=== PATIENT | female | born 1955 | race Caucasian/White ===

== ENCOUNTER 2019-02-12 09:23 | Emergency (ER) | payer BC ==
--- OUTSIDE RECORDS SUMMARY | 2019-02-12 09:25 | XMS REPORT ---
:1955 Author Organization [employer] Care Team Providers Name Role Phone Natalie Evi Provider Role Unavailable Allergies No Known Allergies Problems Problem Type Condition Code Onset Dates Condition Status Problem Hyperlipidemia, unspecified E78.5 Active hyperlipidemia type Problem History of kidney stones Z87.442 Active Problem Iron deficiency anemia, unspecified D50.9 Active iron deficiency anemia type Problem Encounter for removal of sutures Z48.02 Active Problem Rib pain on right side R07.81 Active Problem Vertigo R42 Active Problem Dizziness R42 Active Problem Peripheral edema R60.9 Active Problem Skin lesion L98.9 Active Problem Status post fall Z91.81 Active Problem Prediabetes R73.03 Active Problem Vitamin D deficiency E55.9 Active Problem Depression with anxiety F41.8 Active Problem Insomnia, unspecified type G47.00 Active Problem Hypothyroidism, unspecified type E03.9 Active Medications No Known Medications Results No Known Results Summary Purpose elastic[employer]ioinicalPadinmotion Submission
--- OUTSIDE RECORDS SUMMARY | 2019-02-12 09:25 | XMS REPORT ---
:1955 [facility] Address [address] [place] [address] Dr. Lowery [address] [place] [id number] Care Team Providers Name Role Phone Unavailable Unavailable Unavailable Problems This patient has no known problems. Allergies, Adverse Reactions, Alerts This patient has no known allergies or adverse reactions. Medications This patient has no known medications.
[2019-02-12 09:55] LABS: Absolute Lymphocytes (CBC) 2.1 K/uL (0.7-4.9); Basophils % 0.9 % (0-1.3); Lymphocytes % 24.9 % (15.3-44.8); MPV 8.1 fL (7.6-11.3); RBC Red Blood Cell Count 4.76 M/uL (3.86-4.86)
--- NOTE | 2019-02-12 10:20 | RAD REPORT ---
EXAM DESCRIPTION: USExtremity Venous Uni Ltd02/12/2019 10:09 am CLINICAL HISTORY: left leg pain and swelling. COMPARISON: None. FINDINGS: Left common femoral, superficial femoral, popliteal and posterior tibial veins are compre ssible and demonstrate augmentation. Doppler demonstrates good flow. IMPRESSION: No evidence of deep venous thrombosis involving the left lower extremity.
--- NOTE | 2019-02-12 10:21 | RAD REPORT ---
EXAM DESCRIPTION: Santiago Single View02/12/2019 10:14 am CLINICAL HISTORY: sob COMPARISON: none FINDINGS: The lungs appear clear of acute infiltrate. The heart is normal size IMPRESSION: No acute abnormalities displayed
--- NOTE | 2019-02-12 10:22 | RAD REPORT ---
EXAM DESCRIPTION: CT - CTHCSPWOC - 02/12/2019 9:53 am CLINICAL HISTORY: Bilateral arm weakness COMPARISON: None. TECHNIQUE: Axial 5 mm thick images of the head were obtained. Axial 2 mm thick images of the cervic al spine were obtained with sagittal and coronal reconstruction images generated and reviewed. All CT scans are performed using dose optimization technique as appropriate and may include automated exposure control or mA/KV adjustment according to patient size. FINDINGS: No intracranial hemorrhage, mass, edema or acute intracranial finding. No suspicion for acute infarct ion. No extra-axial fluid collections. Mastoid air cells and paranasal sinuses are clear. No globe or orbit abnormality seen. Cervical bodies are normal in height. No subluxation abnormalities. No fracture or acute cervical mike tebral body finding. C4-5, C5-6 and C6-7 disc space narrowing present with mild C7-T1 disc space narr owing. Anterior and posterior endplate spurs are present. There is very prominent thickening and calc ification of the posterior longitudinal ligament spanning C3-C5. Severe left facet degenerative santiago e at C3-4 with bony foraminal encroachment. Calcified posterior ligament changes cause central spinal stenosis to 9 mm. Posterior calcifications at C4-5 extend into each exit foramen where there is very substantial bony foraminal encroachment and central spinal stenosis to 6.5 mm. Uncovertebral hypertr ophy causes significant right foraminal stenosis at C5-6. Posterior ligamentous thickening changes ca use central spinal stenosis to 7 mm. No paraspinal mass or hematoma. Central canal detail is inherently limited. IMPRESSION: Negative CT head examination for acute or significant finding. No fracture or acute cervical spine finding. Cervical spine degenerative changes are present as detailed above. The very significant posterior liborio gitudinal ligament thickening and calcification causes substantial spinal stenosis at C3-4, C4-5 and C5-6. Cord flattening is certainly occurring. Cord detail is limited on CT imaging. Multilevel bony foraminal encroachment as detailed.
--- NOTE | 2019-02-12 10:37 | EKG ---
Test Date: 2019-02-12 Test Time: 09:48:43 [employer] Director: FAINA MEASUREMENT RESULTS: Intervals: Rate: 80 MA: 154 QRSD: 90 QT: 402 QTc: 463 Felt: P: 20 MA: 154 QRS: -20 T: 10 INTERPRETIVE STATEMENTS: Normal sinus rhythm Minimal voltage criteria for LVH, may be normal variant Cannot rule out Anterior infarct, age undetermined Abnormal ECG Compared to ECG 05/03/2016 08:45:38 Left ventricular hypertrophy now present Myocardial infarct finding now present Electronically Signed On 02-12-19 10:36:27 CDT by Dario Casas
[2019-02-12] MEDS ORDERED: dexAMETHasone 10 MG/ML VIAL ONE (10:44)
[2019-02-12 10:45] LABS: Blood Morphology Comment NOT SEEN (NOT SEEN); Platelet Estimate ADEQ
[2019-02-12 11:50] LABS: BUN Blood Urea Nitrogen 12 mg/dL (7-18); Bicarbonate 29 mmol/L (21-32); Glucose Level 104 mg/dL (74-106); NT PRO-BNP 25 pg/mL (<125); Potassium 3.4 mmol/L (3.5-5.1); Sodium Level 139 mmol/L (136-145); Thyroid Stimulating Hormone 0.842 uIU/mL (0.360-3.740); Troponin (Emerg Dept Use Only) < 0.02 ng/mL (0.0-0.045)
[2019-02-12] MEDS ORDERED: DIAZEPAM 5 MG TABLET ONE (13:40)
--- NOTE | 2019-02-12 14:37 | RAD REPORT ---
EXAM DESCRIPTION: MRI - C Spine W/Wo Cont - 02/12/2019 2:21 pm CLINICAL HISTORY: Extremity numbness, abnormal CT imaging with significant spinal stenosis COMPARISON: CT cervical spine February 12 TECHNIQUE: Sagittal T1-weighted, T2-weighted and T2-FLAIR sequences as well as axial T2 medic sequen ce obtained. Sagittal and axial post contrast T1-weighted images were obtained following 18 ml of Gd contrast material. FINDINGS: Cervical bodies are normal in height. No subluxation abnormality. No marrow edema or marro w replacing process. Postcontrast imaging shows no abnormal enhancement of or vertebral body. Cerebellar tonsils and mid-line skull base show no suspicious finding. No significant finding at the C1 and C2 levels. C2-3 level: No significant findings. C3-4 level: Midline disc bulge changes are present. There is calcification along the posterior longit udinal ligament. Posterior ligamentous thickening changes are present. Anterior and posterior subarac hnoid spaces are attenuated. Central spinal stenosis present to 8 mm. Significant left facet joint de generative change with left foraminal stenosis. Cord contour is flattened. C4-5 level: Disc is thinned and desiccated. There is protruding disc material with overlying thickene d and calcified posterior longitudinal ligament. Cord is significantly flattened. Spinal stenosis is present to 6-7 mm. Calcifications extend out into each exit foramen where there is significant forami nal stenosis. No significant facet degenerative change. C5-6 level: Midline and left-sided spurring and disc bulge changes are present. There is flattening i n the midline and left anterior contour the cord. Posterior ligamentous thickening changes are presen t. Canal is stenotic to 7.5 mm. Right bony foraminal encroachment changes are present. C6-7 level: Disc bulge and endplate spurring changes partially attenuate the anterior subarachnoid sp rosa. No contact of the cord. Canal diameter is 8.5 mm. Left foraminal encroachment changes are presen t from uncovertebral joint hypertrophy. C7-T1 level: No significant findings. Significant cord flattening present at C4-5 with significant but less pronounced cord flattening at C 3-4 and C5-6. No cord signal abnormality seen. Post-contrast view show no abnormal enhancement of the vertebral body or disc spaces. No cord or cent ral canal enhancement seen. IMPRESSION: Multilevel significant central spinal stenosis and significant cord flattening most pron ounced at C4-5 with significant changes present at C3-4 and C5-6. Findings are primarily due to protruding disc material and thickened, calcified posterior longitudina l ligament. Canal stenosis, cord flattening and foraminal stenosis findings are detailed at each level in the bod y of the report. Currently there is no cord signal abnormality identifiable. No enhancement on postcontrast imaging.
--- NOTE | 2019-02-12 15:06 | ER ---
Nurse's Notes [facility] Name: Garima Engel Age: 63 yrs Sex: Female : 1955 Arrival Date: 02/12/2019 Time: 09:24 Bed 4 Private MD: Evi Estrada Diagnosis: Spinal stenosis, cervical region;Spinal cord flattening;Dyspnea, unspecified;Weakness;Paresthesia of skin Presentation: 02/12 09:25 Presenting complaint: Patient states: "I've been short of breath and both of my arms aa5 feel weak but he left weaker than the right". Pt also reports monty leg swelling and left leg pain with walking. 09:25 Transition of care: patient was not received from another setting of care. Onset of aa5 symptoms was February 12, 2019. Risk Assessment: Do you want to hurt yourself or someone else? Patient reports no desire to harm self or others. Initial Sepsis Screen: Does the patient meet any 2 criteria? HR > 90 bpm. Does the patient have a suspected source of infection? No. Patient's initial sepsis screen is negative. Care prior to arrival: None. 09:25 Acuity: SHADI 3 aa5 09:25 Method Of Arrival: Ambulatory aa5 Historical: - Allergies: 09:28 Codeine; aa5 09:28 PENICILLINS; aa5 09:42 nitrofurantoin (Anaphylaxis); aa5 - PMHx: 09:28 Thyroid problem; aa5 - PSHx: 09:28 rotator cuff; skin cancer removed; Knee surgery; aa5 - Immunization history:: Adult Immunizations up to date. - Social history:: Smoking status: Patient/guardian denies using tobacco. - Family history:: not pertinent. - Ebola Screening: : No symptoms or risks identified at this time. - Hospitalizations: : No recent hospitalization is reported. Screenin:50 Abuse screen: Denies threats or abuse. Nutritional screening: No deficits noted. aa5 Tuberculosis screening: No symptoms or risk factors identified. Fall Risk None identified. Assessment: 09:30 General: Appears comfortable, Behavior is calm, cooperative. Pain: Complains of pain in aa5 left leg when walking Pain does not radiate. Pain currently is 0 out of 10 on a pain scale. Quality of pain is described as aching, dull, Pain began 2 weeks ago Is intermittent. Neuro: Level of Consciousness is awake, alert, obeys commands, Oriented to person, place, time, situation, Edge Drummer are equal bilaterally Moves all extremities. Gait is steady, Speech is normal, Facial symmetry appears normal, Pupils are PERRLA, Reports monty arm weakness, pt states "I feel like I drop things and my left arm feels weaker than the right at times" . Cardiovascular: Heart tones S1 S2 present Edema is 1+ to bilateral lower extremities Rhythm is regular. Respiratory: Reports shortness of breath at rest on exertion Airway is patent Respiratory effort is even, unlabored, Respiratory pattern is regular, symmetrical, Breath sounds are clear bilaterally. Denies cough. GI: Abdomen is round non-distended, Patient currently denies abdominal pain, diarrhea, nausea, vomiting. : No signs and/or symptoms were reported regarding the genitourinary system. EENT: No signs and/or symptoms were reported regarding the EENT system. Derm: Skin is pink, warm \\T\\ dry. Musculoskeletal: Range of motion: intact in all extremities. 11:12 Reassessment: Dr. Ordaz notified of several IV unsuccessful attempts. . aa5 12:33 Reassessment: Patient is alert, oriented x 3, equal unlabored respirations, skin aa5 warm/dry/pink. Awaiting MRI, pt notified of wait time . 13:45 Reassessment: Patient is alert, oriented x 3, equal unlabored respirations, skin aa5 warm/dry/pink. Pt to MRI via wheelchair. . 15:00 Reassessment: Patient is alert, oriented x 3, equal unlabored respirations, skin aa5 warm/dry/pink. Pt back from MRI. 16:20 Reassessment: Patient is alert, oriented x 3, equal unlabored respirations, skin aa5 warm/dry/pink. Awaiting transfer approval from [facility], pt notified of wait time. Pt given a sandwich to eat, crackers, and soda per Dr. Ordaz. . 17:00 Reassessment: Report given to Taye Mtz (at [facility]). Awaiting EMS for transfer, aa5 pt and pt's notified of wait time.. Vital Signs: 09:30 BP 124 / 96; Pulse 92; Resp 16 S; Temp 98.1(O); Pulse Ox 99% on R/A; Weight 81.65 kg aa5 (R); Height 5 ft. 2 in. (157.48 cm) (R); Pain 0/10; 10:40 BP 122 / 73; Pulse 80; Resp 16 S; Pulse Ox 98% on R/A; Pain 0/10; aa5 11:25 BP 119 / 68; Pulse 73; Resp 16 S; Pulse Ox 97% on R/A; aa5 12:30 BP 118 / 64; Pulse 70; Resp 16 S; Pulse Ox 100% on R/A; aa5 13:30 BP 128 / 85; Pulse 84; Resp 18 S; Pulse Ox 98% on R/A; aa5 15:19 BP 120 / 78; Pulse 83; Resp 16; Pulse Ox 100% on R/A; aa5 17:00 BP 109 / 70; Pulse 98; Resp 16 S; Temp 98.0(TE); Pulse Ox 97% on R/A; Pain 0/10; aa5 09:30 Body Mass Index 32.92 (81.65 kg, 157.48 cm) aa5 ED Course: 09:24 Patient arrived in ED. rg4 09:25 Evi Estrada MD is Private Physician. rg4 09:25 Arm band placed on Patient placed in an exam room, on a stretcher. aa5 09:25 Patient has correct armband on for positive identification. Placed in gown. Bed in low aa5 position. Call light in reach. Side rails up X2. case monitor on. Pulse ox on. NIBP on. 09:29 Titus Ordaz MD is Attending Physician. rn 09:43 Rebecca Garcia RN is Primary Nurse. aa5 09:46 Triage completed. aa5 09:52 EKG done, by information technology administrator. reviewed by Titus Ordaz MD. at1 09:52 Missed attempt(s): 22 gauge in right forearm. Missed attempt by planning technicianEvelia hernandez. Bleeding controlled, band aid applied, catheter tip intact. 09:55 CT Head C Spine In Process Unspecified. EDMS 10:11 Extremity Venous Uni Ltd US In Process Unspecified. EDMS 10:16 XRAY Chest (1 view) In Process Unspecified. EDMS 10:55 Missed attempt(s): 22 gauge in left forearm. Bleeding controlled, band aid applied, aa5 catheter tip intact. 11:00 Missed attempt(s): 24 gauge in left hand. Bleeding controlled, band aid applied, aa5 catheter tip intact. 11:05 Missed attempt(s): 24 gauge in left forearm. Bleeding controlled, band aid applied, aa5 catheter tip intact. 11:10 Missed attempt(s): 24 gauge in right antecubital area. Missed attempt by Alona (from aa5 MRI department) . Bleeding controlled, band aid applied, catheter tip intact. 11:40 Inserted saline lock: 20 gauge in right antecubital area, using aseptic technique. aa5 ,using aseptic technique. US guided IV by Dr. Ordaz. 13:56 Patient moved to [facility] via wheelchair. lc 14:22 Patient moved back from [facility]. 15:03 attempted transfer to [facility]. bd 17:20 No provider procedures requiring assistance completed. Patient transferred, IV remains aa5 in place. Administered Medications: 11:45 Drug: Decadron - Dexamethasone 10 mg Route: IVP; Site: right antecubital; aa5 11:55 Follow up: Response: No adverse reaction aa5 13:40 Drug: Valium 5 mg Route: PO; aa5 15:00 Follow up: Response: No adverse reaction aa5 Outcome: 15:05 ER care complete, transfer ordered by . rn 17:20 Transferred by ground EMS to [facility], Transfer form completed. aa5 X-rays sent w/ patient. Note: Report given to [facility] 17:20 Condition: stable 17:20 Instructed on the need for transfer, Demonstrated understanding of instructions. 17:25 Patient left the ED. aa5 Signatures: Dispatcher [employer] EDMS Hue Fuentes Lorena lc Nieto, Roman, MD MD rn Calderon, Audri RN RN aa5 Alannah Long, reinstatement clerk EKG Tat1 Soledad [place] rg4 Corrections: (The following items were deleted from the chart) 09:45 09:24 Arm band placed on Patient placed in an exam room, on a stretcher, aa5 aa5 09:48 09:25 Initial Sepsis Screen: Does the patient meet any 2 criteria? No. Patient's aa5 initial sepsis screen is negative. Does the patient have a suspected source of infection? No. Patient's initial sepsis screen is negative. aa5 11:15 09:52 Missed attempt(s): 22 gauge in right forearm. Bleeding controlled, band aid aa5 applied, catheter tip intact. aa5 18:21 18:20 Patient left the ED. aa5 aa5
--- NOTE | 2019-02-12 15:06 | EDPHYS ---
Physician Documentation [facility] Name: Garima Engel Age: 63 yrs Sex: Female : 1955 Arrival Date: 02/12/2019 Time: 09:24 Bed 4 Private MD: Evi Estrada ED Physician Titus Ordaz HPI: 02/12 09:42 This 63 yrs old Female presents to ER via Unassigned with complaints of rn Shortness Of Breath, Arm Weakness, Leg Swelling. 09:42 The patient has shortness of breath with light activity. Onset: The symptoms/episode rn began/occurred 2 week(s) ago. Duration: The symptoms are intermittent. The patient's shortness of breath is aggravated by exertion, light activity. Severity of symptoms: At their worst the symptoms were mild in the emergency department the symptoms are unchanged. The patient has not experienced similar symptoms in the past. Reports 2 weeks of intermittent weakness of both arms, and dyspnea. NO fever/cough/chest pain. Reports feels arms are weak when performing tasks, one side is not worse than other. No leg weakness. No paresthesias. No recent surgery o hx of dvt/pe.. Historical: - Allergies: 09:28 Codeine; aa5 09:28 PENICILLINS; aa5 09:42 nitrofurantoin (Anaphylaxis); aa5 - PMHx: 09:28 Thyroid problem; aa5 - PSHx: 09:28 rotator cuff; skin cancer removed; Knee surgery; aa5 - Immunization history:: Adult Immunizations up to date. - Social history:: Smoking status: Patient/guardian denies using tobacco. - Family history:: not pertinent. - Ebola Screening: : No symptoms or risks identified at this time. - Hospitalizations: : No recent hospitalization is reported. ROS: 09:42 Constitutional: Negative for fever, chills, and weight loss, Eyes: Negative for injury, rn pain, redness, and discharge, Neck: Negative for injury, pain, and swelling, Cardiovascular: Negative for chest pain, palpitations, + edema of both legs, L>R Respiratory: Negative for cough, wheezing, and pleuritic chest pain, Abdomen/GI: Negative for abdominal pain, nausea, vomiting, diarrhea, and constipation, MS/Extremity: Negative for injury and deformity, Skin: Negative for injury, rash, and discoloration, Neuro: Negative for headache, numbness, tingling, and seizure. Exam: 09:42 Constitutional: This is a well developed, well nourished patient who is awake, alert, rn and in no acute distress. Head/Face: Normocephalic, atraumatic. Eyes: Pupils equal round and reactive to light, extra-ocular motions intact. Lids and lashes normal. Conjunctiva and sclera are non-icteric and not injected. Cornea within normal limits. Periorbital areas with no swelling, redness, or edema. ENT: MMM, no stridor Neck: Trachea midline, no thyromegaly or masses palpated, and no cervical lymphadenopathy. Supple, full range of motion without nuchal rigidity, or vertebral point tenderness. No Meningismus. Cardiovascular: Regular rate and rhythm. No pulse deficits. Respiratory: Faint crackles at bases, no tachypnea, no retraction, speaking full sentences Abdomen/GI: soft, non-tender MS/ Extremity: Pulses equal, no cyanosis. Neurovascular intact. Full, normal range of motion. LLE 0.5 cm greater circumference compared to RLE. Non-pitting edema. Non-tender. No erythema Neuro: Awake and alert, GCS 15, oriented to person, place, time, and situation. Cranial nerves II-XII grossly intact. Motor strength 5/5 in all extremities. Sensory grossly intact. Cerebellar exam normal. Normal gait. Vital Signs: 09:30 BP 124 / 96; Pulse 92; Resp 16 S; Temp 98.1(O); Pulse Ox 99% on R/A; Weight 81.65 kg aa5 (R); Height 5 ft. 2 in. (157.48 cm) (R); Pain 0/10; 10:40 BP 122 / 73; Pulse 80; Resp 16 S; Pulse Ox 98% on R/A; Pain 0/10; aa5 11:25 BP 119 / 68; Pulse 73; Resp 16 S; Pulse Ox 97% on R/A; aa5 12:30 BP 118 / 64; Pulse 70; Resp 16 S; Pulse Ox 100% on R/A; aa5 13:30 BP 128 / 85; Pulse 84; Resp 18 S; Pulse Ox 98% on R/A; aa5 15:19 BP 120 / 78; Pulse 83; Resp 16; Pulse Ox 100% on R/A; aa5 17:00 BP 109 / 70; Pulse 98; Resp 16 S; Temp 98.0(TE); Pulse Ox 97% on R/A; Pain 0/10; aa5 09:30 Body Mass Index 32.92 (81.65 kg, 157.48 cm) aa5 Procedures: 11:29 Peripheral line: by aseptic technique a peripheral line was placed in the right rn antecubital vein, 20g peripheral IV placed using Ultrasound guidance. Single stick, Good blood flow and easy flush. . MDM: 09:29 Patient medically screened. 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 15:01 Differential diagnosis: cervical stenosis, spinal cord compression. Data reviewed: rn vital signs, nurses notes, lab test result(s), EKG, radiologic studies, CT scan, MRI, and as a result, I will admit patient. Counseling: I had a detailed discussion with the patient and/or guardian regarding: the historical points, exam findings, and any diagnostic results supporting the discharge/admit diagnosis, lab results, radiology results, the need to transfer to another facility, for higher level of care, [facility] does not immediately have the required specialist. ED course: Pt with spinal cord flattening and significant cervical canal stenosis, arranging transfer to [facility] for NSG consult and evaluation.. 02/12 09:41 Order name: CBC with Diff; Complete Time: 11:50 rn 02/12 09:41 Order name: Basic Metabolic Panel; Complete Time: 11:50 rn 02/12 09:41 Order name: N-Terminal Pro-brain Natriuretic Peptide; Complete Time: 11:50 rn 02/12 09:41 Order name: Troponin (emerg Dept Use Only); Complete Time: 11:50 rn 02/12 09:41 Order name: TSH; Complete Time: 11:50 rn 02/12 09:41 Order name: T4 Free; Complete Time: 11:50 rn 02/12 09:41 Order name: XRAY Chest (1 view); Complete Time: 10:27 rn 02/12 09:41 Order name: CT Head C Spine; Complete Time: 10:27 rn 02/12 09:41 Order name: Extremity Venous Uni Ltd US; Complete Time: 10:27 rn 02/12 10:46 Order name: Manual Differential; Complete Time: 11:50 EDAK 02/12 15:03 Order name: C Spine W/Wo Cont EDAK 02/12 09:41 Order name: IV Start; Complete Time: 12:28 rn 02/12 09:41 Order name: EKG; Complete Time: 09:42 rn 02/12 09:41 Order name: EKG - Nurse/Tech; Complete Time: 09:51 rn 02/12 16:22 Order name: Diet Heart Healthy; Complete Time: 16:22 bd Administered Medications: 11:45 Drug: Decadron - Dexamethasone 10 mg Route: IVP; Site: right antecubital; aa5 11:55 Follow up: Response: No adverse reaction aa5 13:40 Drug: Valium 5 mg Route: PO; aa5 15:00 Follow up: Response: No adverse reaction aa5 Disposition: 02/12/19 15:05 Transfer ordered to [facility]. Diagnosis are Spinal stenosis, cervical region, Spinal cord flattening, Dyspnea, unspecified, Weakness, Paresthesia of skin. - Reason for transfer: Higher level of care. - Accepting physician is Dr.. - Condition is Stable. - Problem is an ongoing problem. - Symptoms are unchanged. Signatures: Dispatcher [employer] [facility] Titus Ordaz MD MD rn Calderon, Audri, RN RN aa5 Corrections: (The following items were deleted from the chart) 14:59 10:43 C Spine W Cont ordered. [facility] EDAK 18:20 15:05 02/12/2019 15:05 Transfer ordered to [facility]. Diagnosis is aa5 Spinal stenosis, cervical region; Spinal cord flattening; Dyspnea, unspecified; Weakness; Paresthesia of skin. Reason for transfer: Higher level of care. Accepting physician is Dr.. Condition is Stable. Problem is an ongoing problem. Symptoms are unchanged. rn
[2019-02-12 19:14] VITALS: BP 109/70; TEMP 98; O2SAT 97
== END 2019-02-12 18:20 | disposition short-term general hospital (02) ==
LOC: ER 09:23
PROC: 05HD33Z Insertion of Infusion Device into Right Cephalic Vein, Percutaneous Approach (ICD-10-PCS; principal; 2019-02-12)
DX: M48.02 Spinal stenosis, cervical region (principal); G95.20 Unspecified cord compression; R53.1 Weakness; R20.2 Paresthesia of skin; Z85.828 Personal history of other malignant neoplasm of skin; Z88.0 Allergy status to penicillin; Z88.5 Allergy status to narcotic agent; Z88.8 Allergy status to other drugs, medicaments and biological substances
CPT/HCPCS: 93005; 85025; 80048; 36415; 84443; 84484; 84439; 83880; 70450; 72125; 71045; 93971; 72156; 36569; A9577; J1100; 96374; 99285

== ENCOUNTER 2022-02-28 16:05 | Observation (INO) | payer OTHER ==
--- OUTSIDE RECORDS SUMMARY | 2022-02-28 16:12 | XMS REPORT | Continuity of Care Document ---
:1955 Author Organization [facility] t Address [address] [place] [address] Care Team Providers Name Role Phone No, Pcp [facility] Primary Care Physician Unavailable Bianca Garcia Attending Clinician Unavailable Evi Estrada Attending Clinician Unavailable Yehuda Portillo MD Attending Clinician VI ANGEL Attending Clinician Unavailable Dung Mejia MD Attending Clinician VI ANGEL Admitting Clinician Unavailable Payers Payer Name Policy Type Policy Number Effective Date Expiration Date S benoit MEDICARE A B [id number] 2019 00:00:00 BCBS OS [id number] 2014 POS/PPO/EPO 00:00:00 GENERIC MEDICARE [id number] 2019 SUPPLEMENT 00:00:00 Problems Condition Condition Condition Status Onset Resolution Last Treating Co mments Source Name Details Category Date Date Treatment Clinician Date Spinal Spinal Disease Active [facility] compressio compressio 00:00: Me dical n n 00 Center 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 9-10 [facility] stenosis stenosis 00:00: Medica l 00 Center Prediabete Prediabete Disease Active U nivers s s 7-13 ity of 00:00: [place] [facility] Primary Primary Disease Active 2014-06 Univers hypothyroi hypothyroi 0-07 it y of dism dism 00:00: Medical Branch Mixed Mixed Disease Active 2010-06 Univers hyperlipid hyperlipid 07-06 it y of emia emia 00:00: Medical Branch 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 07-06 it y of ar goiter [place] [facility] [place] Allergies, Adverse Reactions, Alerts Allergy Allergy Status Severity Reaction(s) Onset Inactive Treating Comm ents Source Name Type Date Date Clinician Codeine Propensi Active [facility] ty to 9-25 [facility] adverse 00:00: of reaction 00 Medicin s to e drug Pfcb Propensi Active [facility] ty to 9-25 [place] adverse 00:00: of reaction 00 Medicin s to e drug Penicill Propensi Active [facility] ins ty to 925 [place] adverse 00:00: of reaction 00 Medicin s to e drug NITROFUR Allergy Active High Anaphylaxis [facility]10 [facility] MONOHYD/ 00:00: Medical M-CRYST 00 Center CODEINE Allergy Active [facility]10 [facility] 00:[facility]: Medical 00 Center NITROFUR Allergy Active 2018- [facility] AN 9-10 [facility] ANALOGUE 00:00: Medical S 00 Center PENICILL Allergy Active 2019- [facility] INS 9-10 [facility] 00:00: Medical 00 Center Codeine Propensi Active [facility] ty to 9-10 [facility] adverse 00:00: Medical reaction 00 Center s Nitrofur Propensi Active Anaphylaxis Had C HI [facility] antoin ty to 9-10 anaphylac [facility] Monohyd/ adverse 00:00: tic shock Medi aida M-Cryst reaction 00 Center s Nitrofur Propensi Active 2018- anaphylax [facility] an ty to 9-10 is [facility] Analogue adverse 00:00: Medical s reaction 00 Center s Penicill Propensi Active [facility] ins ty to 9-10 [facility] adverse 00:00: Medical reaction 00 Center s Codeine Propensi Active Nausea 2010-06 Univers ty to and/or 0 ity of adverse Vomiting 00:00: [place] reaction 00 Medical s Branch Penicill Propensi Active Rash 2010-06 Univer s ins ty to 0-28 ity of adverse 00:00: [place] reaction 00 Medical [facility] PCN Adverse Active rash Common Reaction [facility] Bactrim Adverse Active anaphylaxis Com mon Reaction [facility] Family History Family Member Diagnosis Comments Start Date Stop Date Source Maternal grandfather Heart disease C HI [facility] Natural mother Heart disease [facility] Social History Social Habit Start Date Stop Date Quantity Comments Source Exposure to Not sure [facility] Colleg e SARS-CoV-2 (event) of Med icine History SDOH [facility] Alcohol Std Drinks Medica l Center History SDOH [facility] Alcohol Binge Medical Marjorie [facility] Comment Medical C enter Alcohol intake 2019-02-19 2019-02-[address] [facility] 00:[facility]:00 00:00:00 non-drinker of Medical Ce nter alcohol (finding) History SDOH 2019-02-13 2019-02-[address] [facility] Alcohol Frequency 00:00:00 00:00:00 [facility] Tobacco use and 2019-02-12 2019-02-[address] [facility] exposure 00:00:00 00:00:00 [facility] Sex Assigned At [address] 00:00:00 00:00:00 [facility] Center Smoking Status Start Date Stop Date Source Never smoker [facility] o f Medicine Medications Ordered Filled Start Stop Current Ordering Indication Dosage Frequency Signature Comments Components Source Medication Medication Date Date Medication? Clinician (SIG) Name Name Levothyroxi 2020-0 Yes Take by [place] [facility] [facility] Sodium 9-16 mouth. [place] (SYNTHROID 14:50: of OR) 21 Medicin e Acetaminoph 2020-0 Yes Take by [place] [employer] [facility] (TYLENOL 9-16 mouth. Colleg e EXTRA 14:50: of STRENGTH 21 Medicin OR) e Venlafaxine Venlafaxine 2020-0 Yes Evi 1 capsule Common HCl ER HCl ER 7-28 [facility] 00:00: - [facility] Levothyroxi 2020-0 Yes Take by [place] [employer] [facility] Sodium 3-18 mouth. [place] (SYNTHROID 15:15: of OR) 21 Medicin e Acetaminoph 2020-0 Yes Take by [employer] (TYLENOL 3-18 mouth. Colleg e EXTRA 15:15: of STRENGTH 21 Medicin OR) e Synthroid Synthroid Yes Evi 1 tablet Common 2-16 [facility] 00:00: morning on - [facility] [address] stomach [facility] methocarbam 2018-06 Yes [id number] 750mg Take 1 Tab [facility] ol 2-18 4 by mouth [place] (ROBAXIN) 00:00: four times of 750 MG 00 daily. Medicin tablet e methocarbam 2018-06 Yes [id number] 750mg Take 1 Tab [facility] ol 2-18 4 by mouth [facility] (ROBAXIN) 00:00: four times of 750 MG 00 daily. Medicin tablet e Levothyroxi 2018-06 Yes Take by [place] [employer] [facility] Sodium 0-23 mouth. [place] (SYNTHROID 22:00: of OR) 34 Medicin e Acetaminoph 2018-06 Yes Take by [place] (TYLENOL 0-23 mouth. Colleg e EXTRA 22:00: of STRENGTH 34 Medicin OR) e methocarbam 2018-06 Yes [id number] 750mg Take 1 Tab [facility] ol 0-23 01 by mouth [place] (ROBAXIN) 00:00: four times of 750 MG 00 daily. Medicin tablet e Levothyroxi Yes Take by [place] [employer] [facility] Sodium 9-25 mouth. [place] (SYNTHROID 15:10: of OR) 08 Medicin e Acetaminoph Yes Take by [employer] (TYLENOL 9-25 mouth. Colleg e EXTRA 15:10: of STRENGTH 08 Medicin OR) e levothyroxi Yes Take by [facility] St ne 9-17 mouth [facility] (SYNTHROID, 12:19: Every Medic al LEVOTHROID) 54 morning on Ce nter 50 MCG an empty tablet stomach. ondansetron Yes TAKE 1 [facility] (ZOFRAN-ODT 9-17 TABLET BY Col lege ) 4 mg 00:00: MOUTH of disintegrat 00 EVERY 6 Medic in ing tablet HOURS e NEEDED FOR UP TO 7 DAYS tramadol Yes TAKE 1 [facility] (ULTRAM) 50 9-17 TABLET BY Col lege MG tablet 00:00: MOUTH of 00 EVERY 6 Medicin HOURS e NEEDED FOR UP TO 10 DAYS ondansetron Yes TAKE 1 [facility] (ZOFRAN-ODT 9-17 TABLET BY Col lege ) 4 mg 00:00: MOUTH of disintegrat 00 EVERY 6 Medic in ing tablet HOURS e NEEDED FOR UP TO 7 DAYS tramadol Yes TAKE 1 [facility] (ULTRAM) 50 9-17 TABLET BY Col lege MG tablet 00:00: MOUTH of 00 EVERY 6 Medicin HOURS e NEEDED FOR UP TO 10 DAYS Paroxetine Paroxetine Yes Evi 1 tablet Common HCl HCl 8-27 [facility] 00:00: morning - [facility] 00 [facility] Metolazone Metolazone Yes Evi 1-2 Common 8-27 [facility] tablets as Spir it 00:00: needed for - [facility]I 00 leg [facility] Meclizine Meclizine Yes Evi 1 tablet Common HCl HCl 7-11 [facility] as needed Spiri t 00:00: - [facility] Meclizine Meclizine Yes Evi 1 tablet Common HCl HCl 7-11 [facility] as needed Spiri t 00:00: for - [facility]I 00 vertigo [facility] ERGOCALCIFE Yes Take by Uni vers ROL, 4-25 mouth. ity of VITAMIN D2, 15:50: [place] (VITAMIN D 17 Medical ORAL) Branch MULTIVIT Yes Take by Univer s &MINERALS/F 4-25 mouth. ity of ERROUS FUM 15:50: [place] (MULTI 17 Medical VITAMIN Branch ORAL) ERGOCALCIFE Yes Take by Uni vers ROL, 4-25 mouth. ity of VITAMIN D2, 15:50: [place] (VITAMIN D 17 Medical ORAL) Branch MULTIVIT Yes Take by Univer s &MINERALS/F 4-25 mouth. ity of ERROUS FUM 15:50: [place] ([place] [address] Medical VITAMIN Branch ORAL) levothyroxi 2015- No [id number] 50ug Take 1 Tab Univers ne 09-27 by mouth ity of (SYNTHROID) 00:00: 00:00 daily. Navi as 50 mcg 00 :00 Medical tablet Branch atorvastati 2015- No 10mg Take 1 Tab Univers n (LIPITOR) 09-27 by mouth ity of 10 mg 00:00: 00:00 at [place] tablet 00 :00 bedtime. Medical Branch levothyroxi 2015- No [id number] 50ug Take 1 Tab Univers ne 09-27 by mouth ity of (SYNTHROID) 00:00: 00:00 daily. Navi as 50 mcg 00 :00 Medical tablet Branch atorvastati 2015- No 10mg Take 1 Tab Univers n (LIPITOR) 09-27 by mouth ity of 10 mg 00:00: 00:00 at [place] tablet 00 :00 bedtime. Medical Branch Polysacchar Polysacchar Yes Evi 1 capsule Common maggie Iron maggie Iron [facility] dusty Complex Complex - [facility] Vitamin D Vitamin D Yes Evi 1 tablet Common Millender [facility] Furosemide Furosemide Yes Evi 1 tablet Common Millender [facility] Osteo Osteo Yes Evi 1 tablet Common Bi-Flex Bi-Flex Mill[facility] with a Sp dusty Regular Regular meal - [facility] Strength Strength [facility] Trazodone Trazodone Yes Evi 1 tablet Common HCl HCl [facility] as needed Spiri t for sleep - [facility] Probiotic Probiotic Yes Evi not Comm on Millender defined [facility] BusPIRone BusPIRone Yes Evi 1 tablet Common HCl HCl [facility] as needed Spiri t for - CHI anxiety [facility] Centrum Centrum Yes Vei not Common Silver Silver Millender defined Spi rit [facility] Pravastatin Pravastatin Yes Evi 1 tablet Common Sodium Sodium Millender [facility] Xanax Xanax Yes Evi 1 tablet Common Millender [facility] Levothyroxi Levothyroxi Yes Evi 1 tablet 4 Common ne Sodium ne Sodium Mill[facility] days a week, 1/2 - CHI tab [address] week [facility] Immunizations Ordered Immunization Filled Immunization Date Status Commen ts Source Name Name Flucelvax - single Flucelvax - single 2019-04-03 Completed [facility] dose syringe dose syringe 00:00:00 [facility] Flucelvax Flucelvax 2018-03-07 Completed Common [facility] 00:00:00 [facility] Vital Signs Vital Name Observation Time Observation Value Comments Source Systolic blood 2020-02-19 14:47:00 125 mm[Hg] [facility] pressure Medicine Diastolic blood 2020-02-19 14:47:00 84 mm[Hg] [facility] pressure Medicine Heart rate 2020-02-19 14:47:00 74 /min [facility] Body temperature 2020-02-19 14:47:00 36.28 Rachna [facility] Respiratory rate 2020-02-19 14:47:00 15 /min [facility] Body height 2020-02-19 14:47:00 157.5 cm [facility] Body weight 2020-02-19 14:47:00 83.915 kg [facility] BMI 2020-02-19 14:47:00 33.84 kg/m2 [facility] Oxygen saturation in 2020-02-19 14:47:00 97 /min [facility] of Arterial blood by Medicine Pulse oximetry Systolic blood 2020-02-19 14:47:00 125 mm[Hg] [facility] pressure Medicine Diastolic blood 2020-02-19 14:47:00 84 mm[Hg] [facility] Medicine Heart rate 2020-02-19 14:47:00 74 /min [facility] Body temperature 2020-02-19 14:47:00 36.28 Rachna [facility] Respiratory rate 2020-02-19 14:47:00 15 /min [facility] Body height 2020-02-19 14:47:00 157.5 cm [facility] Body weight 2020-02-19 14:47:00 83.915 [facility] BMI 2020-02-19 14:47:00 33.84 kg/m2 [facility] of Medicine Oxygen saturation in 2020-02-19 14:47:00 97 /min [facility] of Arterial blood by Medicine Pulse oximetry Systolic blood 2019-08-21 15:14:00 122 mm[Hg] [facility] of pressure Medicine Diastolic blood 2019-08-21 15:14:00 79 mm[Hg] [facility] pressure Medicine Heart rate 2019-08-21 15:14:00 88 /min [facility] Body temperature 2019-08-21 15:14:00 36.11 Rachna [facility] Respiratory rate 2019-08-21 15:14:00 15 /min [facility] Body height 2019-08-21 15:14:00 157.5 cm [facility] Body weight 2019-08-21 15:14:00 83.462 kg [facility] BMI 2019-08-21 15:14:00 33.65 kg/m2 [facility] Oxygen saturation in 2019-08-21 15:14:00 97 /min [facility] of Arterial blood by Medicine Pulse oximetry Systolic blood 2019-08-21 15:14:00 122 mm[Hg] [facility] of pressure Medicine Diastolic blood 2019-08-21 15:14:00 79 mm[Hg] [facility] of pressure Medicine Heart rate 2019-08-21 15:14:00 88 /min [facility] Body temperature 2019-08-21 15:14:00 36.11 Rachna [facility] Respiratory rate 2019-08-21 15:14:00 15 /min [facility] Body height 2019-08-21 15:14:00 157.5 [facility] Body weight 2019-08-21 15:14:00 83.462 [facility] BMI 2019-08-21 15:14:00 33.65 kg/m2 [facility] Oxygen saturation in 2019-08-21 15:14:00 97 /min [facility] of Arterial blood by Medicine Pulse oximetry Diastolic blood 2019-03-27 21:58:00 93 mm[Hg] [facility] of pressure Medicine Heart rate 2019-03-27 21:58:00 102 /min [facility] Body temperature 2019-03-27 21:58:00 37.17 [facility] Respiratory rate 2019-03-27 21:58:00 15 /min [facility] Body height 2019-03-27 21:58:00 157.5 cm [facility] Body weight 2019-03-27 21:58:00 81.647 [facility] BMI 2019-03-27 21:58:00 32.92 kg/m2 [facility] Systolic blood 2019-03-27 21:58:00 146 mm[Hg] [facility] of pressure Medicine Diastolic blood 2019-03-27 21:58:00 93 mm[Hg] [facility] pressure Medicine Heart rate 2019-03-27 21:58:00 102 /min [facility] Medicine Body temperature 2019-03-27 21:58:00 37.17 [facility] Respiratory rate 2019-03-27 21:58:00 15 /min [facility] Body height 2019-03-27 21:58:00 157.5 cm [facility] Body weight 2019-03-27 21:58:00 81.647 kg [facility] BMI 2019-03-27 21:58:00 32.92 kg/m2 [facility] Systolic blood 2019-03-27 21:58:00 146 mm[Hg] [facility] of pressure Medicine Systolic blood 2019-02-27 14:53:00 140 mm[Hg] [facility] Medicine Diastolic blood 2019-02-27 14:53:00 87 mm[Hg] [facility] pressure Medicine Heart rate 2019-02-27 14:53:00 98 /min [facility] Body temperature 2019-02-27 14:53:00 36.83 Rachna [facility] Respiratory rate 2019-02-27 14:53:00 15 /min [facility] Body height 2019-02-27 14:53:00 157.5 cm [facility] Body weight 2019-02-27 14:53:00 81.647 kg [facility] BMI 2019-02-27 14:53:00 32.92 [facility]m2 [facility] Systolic blood 2019-02-27 14:53:00 140 mm[Hg] [facility] of pressure Medicine Diastolic blood 2019-02-27 14:53:00 87 mm[Hg] [facility] of pressure Medicine Heart rate 2019-02-27 14:53:00 98 /min [facility] Body temperature 2019-02-27 14:53:00 36.83 Rachna [facility] Respiratory rate 2019-02-27 14:53:00 15 /min [facility] Body height 2019-02-27 14:53:00 157.5 cm [facility] Body weight 2019-02-27 14:53:00 81.647 kg [facility] BMI 2019-02-27 14:53:00 32.92 kg/m2 [facility] Systolic blood 2014-04-11 14:44:00 133 mm[Hg] Univer sity of pressure [place] [facility] Diastolic blood 2014-04-11 14:44:00 82 mm[Hg] Unive rsity of pressure [place] [facility] Heart rate 2014-04-11 14:44:00 83 /min Universi ty [facility] [place] [facility] Body temperature 2014-04-11 14:44:00 36.61 Rachna Univ ersity of [place] [facility] Respiratory rate 2014-04-11 14:44:00 18 /min Univ ersity of [place] [facility] Body height 2014-04-11 14:44:00 157.5 cm Universi ty [facility] [place] [facility] Body weight 2014-04-11 14:44:00 78.291 kg [facility] [place] [facility] BMI 2014-04-11 14:44:00 31.57 kg/m2 [facility]i ty [facility] [place] [facility] Systolic blood 2014-04-11 14:44:00 133 mm[Hg] Univer sity of pressure [place] [facility] Diastolic blood 2014-04-11 14:44:00 82 mm[Hg] Unive rsity of pressure [place] [facility] Heart rate 2014-04-11 14:44:00 83 /min Universi ty [facility] [place] [facility] Body temperature 2014-04-11 14:44:00 36.61 Rachna Univ ersity of [place] [facility] Respiratory rate 2014-04-11 14:44:00 18 /min Univ ersity of [place] [facility] Body height 2014-04-11 14:44:00 157.5 cm Universi ty [facility] [place] [facility] Body weight 2014-04-11 14:44:00 78.291 kg [facility]i [facility] [place] [facility] BMI 2014-04-11 14:44:00 31.57 kg/m2 [facility] [place] [facility] Procedures This patient has no known procedures. Plan of Care Planned Activity Planned Date Details Comments Source Future Scheduled 2022-02-[address] [facility] Test 00:00:00 (#1) [code = Medical Center INFLUENZA VACCINE (#1)] Future Scheduled 2021-06-[address] [facility] Test 00:00:00 (12+) [code = Medical Center DEPRESSION SCREENING (12+)] Future Scheduled 2021-06-05 FALLS RISK SCREENING [facility] Test 00:00:00 [code = FALLS RISK Medical C enter SCREENING] Future Scheduled 2020-08-[address] [facility] Test 00:00:00 WELLNESS (YEAR 2 or Medical Center FIRST YEAR if no IPPE) [code = MEDICARE ANNUAL WELLNESS (YEAR 2 or FIRST YEAR if no IPPE)] Future Scheduled 2019-08-26 PNEUMOCOCCAL 65+ YRS [facility] Test 00:00:00 (1 - PCV) [code = Medical Ce nter PNEUMOCOCCAL 65+ YRS (1 - PCV)] Future Scheduled 2004 SHINGLES VACCINES ([address] [facility] Test 00:00:00 of 2) [code = Medical Center SHINGLES VACCINES (1 of 2)] Future Scheduled 1973 DTAP/TDAP/TD [facility]ACCINES [facility] Test 00:00:00 (1 - Tdap) [code = Medical C enter DTAP/TDAP/TD VACCINES (1 - Tdap)] Future Scheduled 1972 HEPATITIS C SCREENING [facility] 00:00:00 [code = HEPATITIS C Medical Center SCREENING] Future Scheduled 1955[birth year]25 COVID-19 VACCINE (#1) [facility] 00:00:00 [code = COVID-[address] VACCINE (#1)] Future Scheduled [address] [facility] Test 00:00:00 malignant neoplasm of Medica l Center breast (procedure) [code = 670613410] Future Scheduled [address] [facility] Test 00:00:00 (combo) [code = CT Medical C enter Colonography (combo)] Future Scheduled [address] [facility] Test 00:00:00 malignant neoplasm of Medica l Center colon (procedure) [code = 238724258] Future Scheduled [address] [facility] Test 00:00:00 malignant neoplasm of [facility] colon (procedure) [code = 708918878] Future Scheduled 1955 DXA SCAN [code = DXA [facility] Test 00:00:00 SCAN] [facility] Future Scheduled [address] [facility] Test 00:00:00 malignant neoplasm of [facility] colon (procedure) [code = 467719415] Future Scheduled [address] [facility] Test 00:00:00 malignant neoplasm of [facility] colon (procedure) [code = 441220345] Future Scheduled 1955 Sigmoidoscopy [code = [facility]00 Sigmoidoscopy] [facility] Future Scheduled HEPATITIS C SCREENING [employer] Test [code = HEPATITIS C of Medic ine SCREENING] Future Scheduled ZOSTER VACCINE (1 of [employer] Test 2) [code = ZOSTER of Medicin e VACCINE (1 of 2)] Future Scheduled MEDICARE IPPE [facility] Col lege Test (WELCOME TO MEDICARE) of Med icine [code = MEDICARE IPPE (WELCOME TO MEDICARE)] Future Scheduled OSTEOPOROSIS [facility] Viry ege Test SCREENING [code = of Medicin e OSTEOPOROSIS SCREENING] Future Scheduled PNEUMOVAX >=65 [facility] Co llege Test (PPSV23) [code = of Medicine PNEUMOVAX >=65 (PPSV23)] Future Scheduled FLU VACCINE > 6 [facility] C ollege Test MONTHS [code = FLU of Medici ne VACCINE > 6 MONTHS] Future Scheduled BMI FOLLOW UP PLAN [employer] Test [code = BMI FOLLOW UP of Med icine PLAN] Future Scheduled FALL SCREEN [code = [employer] Test FALL SCREEN] of Medicine Future Scheduled MA DME SUPPLY OR Ordered: [facility] Test ACCESSORY, NOS [code 02/27/2019 of Medi cine = A9999] Future Scheduled COLON CANCER [facility] Viry [facility]ge Test SCREENING: of Medicine COLONOSCOPY [code = COLON CANCER SCREENING: COLONOSCOPY] Future Scheduled MAMMOGRAM ANNUAL [facility] College Test [code = MAMMOGRAM of Medicin e ANNUAL] Future Scheduled TETANUS SHOT (ADULT) [employer] Test [code = TETANUS SHOT of Medi cine (ADULT)] Future Scheduled BMI FOLLOW UP PLAN [employer] Test [code = BMI FOLLOW UP of Med icine PLAN] Future Scheduled HEPATITIS C SCREENING [employer] Test [code = HEPATITIS C of Medic ine SCREENING] Future Scheduled HIV SCREENING [code = [employer] Test HIV SCREENING] of Medicine Future Scheduled CERVICAL CANCER [facility] C ollege Test SCREENING 3 YEAR of Medicine FOLLOW UP [code = CERVICAL CANCER SCREENING 3 YEAR FOLLOW UP] Future Scheduled FLU VACCINE > 6 [facility] C ollege Test MONTHS [code = FLU of Medici ne VACCINE > 6 MONTHS] Future Scheduled COLON CANCER [facility] Viry ege Test SCREENING: of Medicine COLONOSCOPY [code = COLON CANCER SCREENING: COLONOSCOPY] Future Scheduled MAMMOGRAM ANNUAL [employer] Test [code = MAMMOGRAM of Medicin e ANNUAL] Future Scheduled TETANUS SHOT (ADULT) [employer] Test [code = TETANUS SHOT of Medi cine (ADULT)] Future Scheduled BMI FOLLOW UP PLAN [employer] Test [code = BMI FOLLOW UP of Med icine PLAN] Future Scheduled HEPATITIS C SCREENING [employer] Test [code = HEPATITIS C of Medic ine SCREENING] Future Scheduled HIV SCREENING [code = [employer] Test HIV SCREENING] of Medicine Future Scheduled CERVICAL CANCER [facility] C ollege Test SCREENING 3 YEAR of Medicine FOLLOW UP [code = CERVICAL CANCER SCREENING 3 YEAR FOLLOW UP] Future Scheduled FLU VACCINE > 6 [facility] C ollege Test MONTHS [code = FLU of Medici ne VACCINE > 6 MONTHS] Future Scheduled COLON CANCER [facility] Test SCREENING: of Medicine COLONOSCOPY [code = COLON CANCER SCREENING: COLONOSCOPY] Future Scheduled MAMMOGRAM ANNUAL [employer] Test [code = MAMMOGRAM of Medicin e ANNUAL] Future Scheduled TETANUS SHOT (ADULT) [employer] Test [code = TETANUS SHOT of Medi cine (ADULT)] Future Scheduled HEPATITIS C SCREENING [employer] Test [code = HEPATITIS C of Medic ine SCREENING] Future Scheduled HIV SCREENING [code = [employer] Test HIV SCREENING] of Medicine Future Scheduled CERVICAL CANCER [facility] C ollege Test SCREENING 3 YEAR of Medicine FOLLOW UP [code = CERVICAL CANCER SCREENING 3 YEAR FOLLOW UP] Future Scheduled FLU VACCINE > 6 [facility] C ollege Test MONTHS [code = FLU of Medici ne VACCINE > 6 MONTHS] Future Scheduled MEDICARE IPPE [facility] Col lege Test (WELCOME TO MEDICARE) of Med icine [code = MEDICARE IPPE (WELCOME TO MEDICARE)] Future Scheduled BMI FOLLOW UP PLAN [employer] Test [code = BMI FOLLOW UP of Med icine PLAN] Future Scheduled COLON CANCER [facility] Viry [facility]ge Test SCREENING: of Medicine COLONOSCOPY [code = COLON CANCER SCREENING: COLONOSCOPY] Future Scheduled MAMMOGRAM ANNUAL [facility] Test [code = MAMMOGRAM of Medicin e ANNUAL] Future Scheduled TETANUS SHOT (ADULT) [facility] Test [code = TETANUS SHOT of Medi cine (ADULT)] Encounters Start End Encounter Admission Attending Care Care Encounter Source Date/Time Date/Time Type Type Clinicians Facility Department ID 2021-06-30 Outpatient Radha, STLMLC STLMLC [id number] Common 11:58:41 Bianca 26264 [facility] 2021-06-30 Outpatient STLMLC STLMLC [id number] Common 11:58:38 60402 [facility] 2021-06-30 Outpatient Millender, STLMLC STLMLC [id number] Common 11:33:32 Evi 48618 [facility] 2021-06-30 Outpatient Millender, STLMLC STLMLC [id number] Common 11:32:59 Evi 50814 [facility] 2021-06-30 Outpatient Millender, STLMLC STLMLC [id number] Common 11:28:48 Evi 38720 [facility] 2021-06-30 Outpatient Millender, STLMLC STLMLC [id number] Common 11:24:15 Evi 33039 [facility] 2021-06-30 Outpatient Millender, STLMLC STLMLC [id number] Common 11:07:07 Evi 44868 [facility] 2021-06-30 Outpatient Millender, STLMLC STLMLC [id number] Common 11:06:43 Evi 92495 [facility] 2020-02-28 2020-02-28 Outpatient STLMLC STLMLC [id number] Common 00:00:00 00:00:00 [facility] 2020-02-19 2020-02-19 Office Yehuda Portillo [id number] 09:21:48 14:00:50 Visit Christian AMBULATOR 350.1.13.21 Y 0.2.7.2.686 [id number] 300 2020-02-19 2020-02-19 Office Yehuda Portillo [id number] [facility] 09:21:48 14:00:50 Visit Christian AMBULATOR 350.1.13.21 College Y 0.2.7.2.686 of [id number] [facility] sara 300 e 2020-02-17 2020-02-17 Outpatient [facility] [id number] [facility] 00:00:00 00:00:00 2020-01-07 2020-01-07 [facility] [id number] Common 07:40:00 07:40:00 [facility] [address] [facility] 2019-12-31 2019-12-31 [facility] [id number] Common 15:20:00 15:20:00 [facility] [address] [facility] 2019-08-21 2019-08-21 Office Yehuda Portillo [facility] [id number] 09:45:05 10:57:15 Visit Christian AMBULATOR 350.1.13.21 Y 0.2.7.2.686 [id number] 300 2019-08-21 2019-08-21 Office Yehuda Portillo [id number] [facility] 09:45:05 10:57:15 Visit Christian AMBULATOR 350.1.13.21 College Y 0.2.7.2.686 of [id number] [facility] 300 e 2019-08-21 2019-08-21 Outpatient SLE SLEH [id number] [facility] 00:00:00 00:00:00 [id number] 2019-07-17 2019-07-17 [facility] [id number] Common 08:45:00 08:45:00 [facility] [address] [facility] 2019-04-29 2019-04-29 [facility] [id number] Common 16:29:00 16:29:00 [facility] [address] [facility] 2019-04-03 2019-04-03 [facility] [id number] Common 16:00:00 16:00:00 [facility] [address] [facility] 2019-03-27 2019-03-27 Office Yehuda Portillo [id number] 14:37:04 15:07:00 Visit AMBULATOR 350.1.13.21 Y 0.2.7.2.686 [id number] 300 2019-03-27 2019-03-27 Office Yehuda Portillo [id number] [facility] 14:37:04 15:07:00 Visit AMBULATOR 350.1.13.21 College Y 0.2.7.2.686 of [id number] [facility] sara 300 e 2019-02-27 2019-02-27 Office Yehuda Portillo [id number] 09:38:17 10:16:10 Visit AMBULATOR 350.1.13.21 Y 0.2.7.2.686 [id number] 300 2019-02-27 2019-02-27 Office Yehuda Portillo [id number] [facility]3 [facility] 09:38:17 10:16:10 Visit AMBULATOR 350.1.13.21 College Y 0.2.7.2.686 of [id number] [facility] sara 300 e 2019-02-23 2019-02-23 [facility] [id number] Common 07:56:00 07:56:00 [facility] it Road [facility] 2019-01-29 2019-01-29 [facility] [id number] Common 09:49:00 09:49:00 [facility] it Road [facility] 2019-01-29 2019-01-29 [facility] [id number] Common 08:00:00 08:00:00 [facility] it Road [facility] 2018-12-14 2018-12-14 [facility] [id number] Common 11:25:00 11:25:00 [facility] it Road [facility] 2018-12-13 2018-12-13 [facility] [id number] Common 16:00:00 16:00:[address] [facility] 2018-10-11 2018-10-11 [facility] [id number] Common 13:00:00 13:00:00 t [facility]gent [facility] 2018-09-12 2018-09-12 [facility] [id number] Common 09:20:00 09:20:[address] [facility] 2018-09-04 2018-09-04 [facility] [id number] Common 09:30:00 09:30:00 t Urgent Urgent Care S pirit Care [facility] 2018-08-31 2018-08-31 [facility] [id number] Common 21:05:00 21:05:[address] [facility] 2018-08-21 2018-08-21 [facility] [id number] Common 11:49:00 11:49:[address] [facility] 2018-08-15 2018-08-15 [facility] [id number] Common 08:30:00 08:30:[address] [facility] 2018-03-07 2018-03-07 [facility] [id number] Common 08:30:00 08:30:[address] [facility] 2017-09-18 2017-09-18 [facility] [id number] Common 15:03:00 15:03:[address] [facility] 2017-09-07 2017-09-07 [facility] [id number] Common 14:47:00 14:47:[address] [facility] 2017-09-06 2017-09-06 [facility] [id number] Common 15:30:00 15:30:00 t [facility] 2014-04-11 2014-04-11 Office ROSALINDA Mejia [id number] 09:00:00 09:30:00 Visit Dung Oshea 350.1.13.10 [place] 4.2.7.2.686 Professio [id number] nal [address] 2014-04-11 2014-04-11 Office ROSALINDA Mejia [id number] [facility] 09:00:00 09:30:00 Visit Dung Oshea 350.1.13.10 i [place] [id number] Me dical formerly [facility] [address] [facility] Results Test Description Test Time Test Comments Results Result Sour e Comments CT, SPINE, 2020-02-18 Unlisted Reason FINAL REPORT PATIENT CERVICAL, WITHOUT 07:39:00 for Exam - ID: [id number] CT, SPINE, IV CONTRAST Click Yes and CERVICAL, WITHOUT IV Enter Reason CONTRAST HISTORY: Below->YesUnlis Cervical myelopathy alejandra Reason for with radiculopathy; Exam->M47.12 status post fusion (ICD-10-CM) - COMPARISON: Cervical Cervical spine CT 02/15/2019 myelopathy with TECHNIQUE: CT of the cervical cervical spine without radiculopathy, contrast. Sagittal and Z98.1 coronal reformations (ICD-10-CM) - were created. One or S/P cervical more of the following spinal fusion dose reduction techniques were used: Automated exposure control, adjustment of the mA and/or kV according to patient size, and/or utilization of iterative reconstruction technique. FINDINGS: Postsurgical changes related to posterior fusion from C2 to C6 with laminectomies from C3 to C5 are present. Hardware streak artifacts obscure some details. There is no definite evidence for hardware failure or loosening. Cervical lordosis is preserved.There is no scoliosis or subluxation.No definite acute fracture or compression deformity is seen. The craniocervical junction is intact. Posterior incision changes are noted.The paravertebral and paraspinal soft tissues are otherwise unremarkable. Underlying multilevel spondylotic changes are advanced from C4-C5 to C6-C7. C2-C3: Moderate right foraminal stenosis due to uncovertebral and facet arthrosis. No significant left foraminal stenosis. The spinal canal is obscured by streak artifact. C3-C4: Laminectomy level. Mild right and mild to moderate left foraminal stenoses due to uncovertebral and facet arthrosis. The spinal canal is obscured by streak artifact; however, posterior longitudinal ligament ossification is present. C4-C5: Laminectomy level. Severe bilateral foraminal stenoses due to uncovertebral and facet arthrosis. The spinal canal is obscured by streak artifact; however, posterior longitudinal ligament ossification is present. C5-C6: Severe right and moderate left foraminal stenoses due to uncovertebral and facet arthrosis. The spinal canal is obscured by streak artifact; however, posterior longitudinal ligament ossification is present. C6-C7: Mild to moderate bilateral foraminal stenoses due to uncovertebral and facet arthrosis. No gross canal stenosis. C7-T1: No gross canal or foraminal stenosis. The C7-T1 facet joints are fused. Incidental findings: Enlarged, heterogeneous thyroid goiter has not significantly changed. IMPRESSION: 1.No acute osseous abnormalities.2.Posteri or fusion from C2 to C6 with laminectomies from C3 to C5.3.Underlying multilevel spondylosis is advanced from C4-C5 to C6-C7. 4.Multilevel degenerative foraminal stenoses - severe bilaterally at C4-C5 and on the right at C5-C6.5.The spinal canal is obscured by streak artifact; however, posterior longitudinal ligament ossification is seen from C3 to C6. Signed: Salazar Gonzalez MDReport Verified Date/Time: 02/18/2020 07:39:56 Reading Location: [facility] Reading Room [address] [place] [address] , SPINE, 2019-08-21 Reason for FINAL REPORT PATIENT CERVICAL, 2 OR 3 15:01:00 Exam:->s/p ID: [id number] VIEWS cervical spinal EXAMINATION: Cervical fusion and spine radiographs - 3 muscle spasms views CLINICAL HISTORY: of neck Status post cervical spine fusion, muscle spasms of neck COMPARISON: Cervical spine radiographs 05/22/2019. DISCUSSION: No evidence of fracture or malalignment. Posterior decompression and fusion of C2-C6 with posterior element and lateral mass screws. No evidence of hardware loosening or failure. Multilevel moderate degenerative disc and facet degenerative changes, most pronounced at C4-C5 and C5-C6. Ossification of the posterior longitudinal ligament. Dental hardware is noted. Impression:Posterior fusion from C2-C6 without evidence of complication. Signed: Ramila Luqueort Verified Date/Time: 08/21/2019 15:01:48 Reading Location: [facility] Reading Room [address] [place] [address] , SPINE, 2019-05-22 Reason for FINAL REPORT PATIENT CERVICAL, 2 OR 3 09:58:00 Exam:->S/P ID: [id number] VIEWS CERVIAL SPINAL EXAMINATION: Cervical FUSION spine radiographs - 3 views CLINICAL HISTORY: Status post cervical spine fusion. COMPARISON: Cervical spine radiographs 03/27/2019. DISCUSSION: No evidence of fracture or malalignment. Posterior decompression and fusion of C2-C6 with posterior element and lateral mass screws. No evidence of hardware loosening or failure. Multilevel moderate degenerative disc and facet degenerative changes, most pronounced at C4-C5 and C5-C6. Ossification of the posterior longitudinal ligament. Impression:Posterior fusion from C2-C6 without evidence of complication. Signed: Ramila Luque Verified Date/Time: 05/22/2019 09:58:24 Reading Location: [facility] Reading Room [address] [place] [address] [facility], 2019-03-27 Reason for FINAL REPORT PATIENT CERVICAL, 2 OR 3 15:32:00 Exam:->status ID: [id number] Exam: VIEWS post cervical Cervical spine two spinal fusion views History: Postoperative evaluation Comparison: CT February 15, 2019 Findings: No fracture. Posterior decompression and fusion of C2-C6 with posterior element and lateral mass screws. No hardware loosening or failure. Multilevel degenerative disc disease. Ossification posterior longitudinal ligament. Impression: Posterior fusion C2-C6. No complication. Signed: Kurt Leary Verified Date/Time: 03/27/2019 15:32:39 T-LATENCY 2019-02-26 For STAT EEG- INTRAOPERATIVE SPE, ALL LIMBS 20:22:00 after 5 PM MONITORING REPORT week, Patient Name: Garima [facility] on-call EEG Center Surgery Date: Tech Reason for 02/15/2019 [employer] PRO exam:->cervical - S/N - [id number] stenosis Monitoring began at 13:13 and ended at 16:00 Surgeon: Yehuda Portillo M.D. Examining Neurologist: Yehuda Rios M.D. Monitoring Technologist: CHERY Zavala Procedure: C2 - C7 Posterior Spinal Fusion/ Laminecetomy Stimulation Parameters: Ulnar nerves individually stimulated at the wrist Rate 4.7Hz, Intensity 35mA, Duration 0.3ms Posterior Tibial nerves individually stimulated at the ankle Rate 4.7Hz, Intensity 70mA, Duration 0.3ms Filters 30-500Hz, Notch Off Motor strip stimulated anterior to C3 and C4 with alternating polarities Intensity 100-500V, Train Rate 4-5, GIOVANA 2-3ms Filters 30-2KHz, Notch Off Recording Parameters: CV, CP3, CP4, CPz, and FPz Free-running EEG recorded with bipolar derivation, using CP3, CP4, referenced to FPz Transcranial electrical Motor Evoked Potentials recorded from the Triceps muscles, Tibialis Anterior referenced with Lateral Gastrocnemius, Abductor Pollicis Brevis referenced to the Abductor Digiti Quinti Minimi muscle groups. Description: Intraoperative neurophysiological monitoring was performed using a combination of upper and lower extremity somatosensory evoked potentials, transcranial electrical motor evoked potentials, and free-running EEG. A real-time connection with the examining neurologist was established and maintained throughout the operative procedure by the monitoring technologist. Upper extremity somatosensory evoked potentials were recorded centrally at the cervical and cortical levels following ulnar nerve stimulation at the wrist. Lower extremity somatosensory evoked potentials were recorded centrally at the cervical and cortical levels following posterior tibial nerve stimulation at the ankle. TceMEPs were recorded peripherally from the upper and lower extremities following alternating polarity motor strip stimulation. Post-induction, post-intubation TceMEP recording responses to motor cortex stimulation were clear and reproducible bilaterally. No significant surgically related changes in amplitude or latency of the somatosensory evoked responses or TceMEPs were noted throughout the surgical procedure. At closing, responses were judged to be essentially unchanged from those of post-positioning baselines. Free-running EEG remained symmetrical throughout the procedure with no focal changes noted to occur. Conclusion: These results suggest the absence of untoward, secondary effects on anterior and posterior column function as a consequence of this surgical procedure. Free-running EEG remained symmetrical throughout the operative procedure. Yehuda Rios M.D. G95.20 W/PLT COUNT & AUTO DIFFERENTIAL 2019-02-19 07:23:00 Test Item Value Reference Range Interpretation Comme nts WHITE BLOOD CELL COUNT (BEAKER) (test code = 775) 11.1 K/ L 3.5- 10.5 H RED BLOOD CELL COUNT (BEAKER) (test code = 761) 3.93 M/ L 3.93-5 .22 HEMOGLOBIN (BEAKER) (test code = 410) 9.9 GM/DL 11.2-15.7 L HEMATOCRIT (BEAKER) (test code = 411) 31.0 % 34.1-44.9 L MEAN CORPUSCULAR VOLUME (BEAKER) (test code = 753) 78.9 fL 79. 4-94.8 L MEAN CORPUSCULAR HEMOGLOBIN (BEAKER) (test code = 751) 25.2 pg 25.6-32.2 L MEAN CORPUSCULAR HEMOGLOBIN CONC (BEAKER) (test code = 752) 31.9 GM/DL 32.2-35.5 L RED CELL DISTRIBUTION WIDTH (BEAKER) (test code = 412) 14.9 % 11.7-14.4 H PLATELET COUNT (BEAKER) (test code = 756) 265 K/CU MM 150-450 MEAN PLATELET VOLUME (BEAKER) (test code = 754) 9.9 fL 9.4-12 .3 NUCLEATED RED BLOOD CELLS (BEAKER) (test code = 413) 0 /100 WBC 0 -0 NEUTROPHILS RELATIVE PERCENT (BEAKER) (test code = 429) 67 % LYMPHOCYTES RELATIVE PERCENT (BEAKER) (test code = 430) 18 % MONOCYTES RELATIVE PERCENT (BEAKER) (test code = 431) 11 % EOSINOPHILS RELATIVE PERCENT (BEAKER) (test code = 432) 3 % BASOPHILS RELATIVE PERCENT (BEAKER) (test code = 437) 0 % NEUTROPHILS ABSOLUTE COUNT (BEAKER) (test code = 670) 7.48 K/ L 1.56-6.13 H LYMPHOCYTES ABSOLUTE COUNT (BEAKER) (test code = 414) 2.03 K/ L 1.18-3.74 MONOCYTES ABSOLUTE COUNT (BEAKER) (test code = 415) 1.21 K/ L 0. 24-0.36 H EOSINOPHILS ABSOLUTE COUNT (BEAKER) (test code = 416) 0.28 K/ L 0.04-0.36 BASOPHILS ABSOLUTE COUNT (BEAKER) (test code = 417) 0.05 K/ L 0. 01-0.08 IMMATURE GRANULOCYTES-RELATIVE PERCENT (BEAKER) (test code 1 % 0-1 = 2801) [id number] 07:06:00 Test Item Value Reference Range Interpretation Comments MAGNESIUM (BEAKER) (test code = 1.8 mg/dL 1.6-2.6 627) BASIC METABOLIC [id number] 07:06:00 Test Item Value Reference Range Interpretation Comments SODIUM (BEAKER) 135 meq/L 136-145 L (test code = 381) POTASSIUM (BEAKER) 3.6 meq/L 3.5-5.1 (test code = 379) CHLORIDE (BEAKER) 98 meq/L 98-107 (test code = 382) CO2 (BEAKER) (test 28 meq/L 22-29 code = 355) BLOOD UREA NITROGEN 18 mg/dL 7-21 (BEAKER) (test code = 354) CREATININE (BEAKER) 0.70 mg/dL 0.57-1.25 (test code = 358) GLUCOSE RANDOM 108 mg/dL 70-105 H (BEAKER) (test code = 652) CALCIUM (BEAKER) 9.6 mg/dL 8.4-10.2 (test code = 697) EGFR (BEAKER) (test 84 mL/min/1.73 ESTIMA ALEJANDRA GFR IS code = 1092) sq m NOT ACCURATE CREATININE CLEARANCE IN PREDICTING GLOMERULAR FILTRATION RATE . ESTIMATED GFR I S NOT APPLICABLE FOR DIALYSIS PATIEN TS. (CELLAVISION MANUAL DIFF)2019-02-18 11:23:00 Test Item Value Reference Range Interpretation Comments NEUTROPHILS - REL 73 % (CELLAVISION)(BEAKER) (test code = 2816) LYMPHOCYTES - REL 14 % (CELLAVISION)(BEAKER) (test code = 2817) MONOCYTES - REL 9 % (CELLAVISION)(BEAKER) (test code = 2818) EOSINOPHILS - REL 4 % (CELLAVISION)(BEAKER) (test code = 2819) NEUTROPHILS - ABS 7.52 K/ul 1.56-6.13 H (CELLAVISION)(BEAKER) (test code = 2830) LYMPHOCYTES - ABS 1.44 K/ul 1.18-3.74 (CELLAVISION)(BEAKER) (test code = 2831) MONOCYTES - ABS 0.93 K/uL 0.24-0.36 H (CELLAVISION)(BEAKER) (test code = 2832) EOSINOPHILS - ABS 0.41 K/uL 0.04-0.36 H (CELLAVISION)(BEAKER) (test code = 2834) TOTAL COUNTED (BEAKER) (test code = 100 1351) WBC MORPHOLOGY (BEAKER) (test code Normal = 487) PLT MORPHOLOGY (BEAKER) (test code Normal = 486) POLYCHROMATOPHILLIC RBCS(BEAKER) 1+ few (test code = 478) HYPOCHROMIA (BEAKER) (test code = 1+ few 963) ARTIFACT (CELLAVISION)(BEAKER) Present (test code = 3432) PLATELET CONCENTRATION Adequate (CELLAVISION)(BEAKER) (test code = 3438) Received comment: User comments: Slide comments:[id number] 06:18:00 Test Item Value Reference Range Interpretation Comments MAGNESIUM (BEAKER) (test code = 1.7 mg/dL 1.6-2.6 627) BASIC METABOLIC [id number] 06:18:00 Test Item Value Reference Range Interpretation Comments SODIUM (BEAKER) 136 meq/L 136-145 (test code = 381) POTASSIUM (BEAKER) 3.6 meq/L 3.5-5.1 (test code = 379) CHLORIDE (BEAKER) 101 meq/L 98-107 (test code = 382) CO2 (BEAKER) (test 29 meq/L 22-29 code = 355) BLOOD UREA NITROGEN 14 mg/dL 7-21 (BEAKER) (test code = 354) CREATININE (BEAKER) 0.67 mg/dL 0.57-1.25 (test code = 358) GLUCOSE RANDOM 102 mg/dL 70-105 (BEAKER) (test code = 652) CALCIUM (BEAKER) 9.2 mg/dL 8.4-10.2 (test code = 697) EGFR (BEAKER) (test 89 mL/min/1.73 ESTIMA ALEJANDRA GFR IS code = 1092) sq m NOT ACCURATE CREATININE CLEARANCE IN PREDICTING GLOMERULAR FILTRATION RATE . ESTIMATED GFR I S NOT APPLICABLE FOR DIALYSIS PATIEN TS. CBC W/PLT COUNT & AUTO [id number] 05:44:00 Test Item Value Reference Range Interpretation Comments WHITE BLOOD CELL COUNT (BEAKER) 10.3 K/ L 3.5-10.5 (test code = 775) RED BLOOD CELL COUNT (BEAKER) 3.64 M/ L 3.93-5.22 L (test code = 761) HEMOGLOBIN (BEAKER) (test code = 9.3 GM/DL 11.2-15.7 L 410) HEMATOCRIT (BEAKER) (test code = 29.2 % 34.1-44.9 L 411) MEAN CORPUSCULAR VOLUME (BEAKER) 80.2 fL 79.4-94.8 (test code = 753) MEAN CORPUSCULAR HEMOGLOBIN 25.5 pg 25.6-32.2 L (BEAKER) (test code = 751) MEAN CORPUSCULAR HEMOGLOBIN CONC 31.8 GM/DL 32.2-35.5 L (BEAKER) (test code = 752) RED CELL DISTRIBUTION WIDTH 14.9 % 11.7-14.4 H (BEAKER) (test code = 412) PLATELET COUNT (BEAKER) (test 257 K/CU MM 150-450 code = 756) MEAN PLATELET VOLUME (BEAKER) 9.6 fL 9.4-12.3 (test code = 754) NUCLEATED RED BLOOD CELLS 0 /100 WBC 0-0 (BEAKER) (test code = 413) CBC W/PLT COUNT & AUTO [id number] 08:37:00 Test Item Value Reference Range Interpretation Comments WHITE BLOOD CELL COUNT (BEAKER) 12.8 K/ L 3.5-10.5 H (test code = 775) RED BLOOD CELL COUNT (BEAKER) 3.86 M/ L 3.93-5.22 L (test code = 761) HEMOGLOBIN (BEAKER) (test code = 9.6 GM/DL 11.2-15.7 L 410) HEMATOCRIT (BEAKER) (test code = 31.1 % 34.1-44.9 L 411) MEAN CORPUSCULAR VOLUME (BEAKER) 80.6 fL 79.4-94.8 (test code = 753) MEAN CORPUSCULAR HEMOGLOBIN 24.9 pg 25.6-32.2 L (BEAKER) (test code = 751) MEAN CORPUSCULAR HEMOGLOBIN CONC 30.9 GM/DL 32.2-35.5 L (BEAKER) (test code = 752) RED CELL DISTRIBUTION WIDTH 15.3 % 11.7-14.4 H (BEAKER) (test code = 412) PLATELET COUNT (BEAKER) (test 250 K/CU MM 150-450 code = 756) MEAN PLATELET VOLUME (BEAKER) 9.6 fL 9.4-12.3 (test code = 754) NUCLEATED RED BLOOD CELLS 0 /100 WBC 0-0 (BEAKER) (test code = 413) (CELLAVISION MANUAL DIFF)2019-02-17 08:37:00 Test Item Value Reference Range Interpretation Comments NEUTROPHILS - REL 70 % (CELLAVISION)(BEAKER) (test code = 2816) LYMPHOCYTES - REL 20 % (CELLAVISION)(BEAKER) (test code = 2817) MONOCYTES - REL 9 % (CELLAVISION)(BEAKER) (test code = 2818) EOSINOPHILS - REL 1 % (CELLAVISION)(BEAKER) (test code = 2819) NEUTROPHILS - ABS 8.96 K/ul 1.56-6.13 H (CELLAVISION)(BEAKER) (test code = 2830) LYMPHOCYTES - ABS 2.56 K/ul 1.18-3.74 (CELLAVISION)(BEAKER) (test code = 2831) MONOCYTES - ABS 1.15 K/uL 0.24-0.36 H (CELLAVISION)(BEAKER) (test code = 2832) EOSINOPHILS - ABS 0.13 K/uL 0.04-0.36 (CELLAVISION)(BEAKER) (test code = 2834) TOTAL COUNTED (BEAKER) (test code = 100 1351) WBC MORPHOLOGY (BEAKER) (test code Normal = 487) PLT MORPHOLOGY (BEAKER) (test code Normal = 486) POIKILOCYTES (BEAKER) (test code = 1+ few 966) ARTIFACT (CELLAVISION)(BEAKER) Present (test code = 3432) PLATELET CONCENTRATION Adequate (CELLAVISION)(BEAKER) (test code = 3438) Received comment: User comments: Slide comments:[id number] 07:14:00 Test Item Value Reference Range Interpretation Comments MAGNESIUM (BEAKER) (test code = 1.7 mg/dL 1.6-2.6 627) BASIC METABOLIC [id number] 07:14:00 Test Item Value Reference Range Interpretation Comments SODIUM (BEAKER) 139 meq/L 136-145 (test code = 381) POTASSIUM (BEAKER) 3.7 meq/L 3.5-5.1 (test code = 379) CHLORIDE (BEAKER) 105 meq/L 98-107 (test code = 382) CO2 (BEAKER) (test 28 meq/L 22-29 code = 355) BLOOD UREA NITROGEN 14 mg/dL 7-21 (BEAKER) (test code = 354) CREATININE (BEAKER) 0.76 mg/dL 0.57-1.25 (test code = 358) GLUCOSE RANDOM 100 mg/dL 70-105 (BEAKER) (test code = 652) CALCIUM (BEAKER) 9.1 mg/dL 8.4-10.2 (test code = 697) EGFR (BEAKER) (test 77 mL/min/1.73 ESTIMA ALEJANDRA GFR IS code = 1092) sq m NOT ACCURATE CREATININE CLEARANCE IN PREDICTING GLOMERULAR FILTRATION RATE . ESTIMATED GFR I S NOT APPLICABLE FOR DIALYSIS PATIEN TS. CBC W/PLT COUNT & AUTO [id number] 07:48:00 Test Item Value Reference Range Interpretation Comments WHITE BLOOD CELL COUNT (BEAKER) 14.0 K/ L 3.5-10.5 H (test code = 775) RED BLOOD CELL COUNT (BEAKER) 3.72 M/ L 3.93-5.22 L (test code = 761) HEMOGLOBIN (BEAKER) (test code = 9.5 GM/DL 11.2-15.7 L POST OP 410) HEMATOCRIT (BEAKER) (test code = 29.5 % 34.1-44.9 L 411) MEAN CORPUSCULAR VOLUME (BEAKER) 79.3 fL 79.4-94.8 L (test code = 753) MEAN CORPUSCULAR HEMOGLOBIN 25.5 pg 25.6-32.2 L (BEAKER) (test code = 751) MEAN CORPUSCULAR HEMOGLOBIN CONC 32.2 GM/DL 32.2-35.5 (BEAKER) (test code = 752) RED CELL DISTRIBUTION WIDTH 15.0 % 11.7-14.4 H (BEAKER) (test code = 412) PLATELET COUNT (BEAKER) (test 284 K/CU MM 150-450 code = 756) MEAN PLATELET VOLUME (BEAKER) 9.8 fL 9.4-12.3 (test code = 754) NUCLEATED RED BLOOD CELLS 0 /100 WBC 0-0 (BEAKER) (test code = 413) NEUTROPHILS RELATIVE PERCENT 81 % (BEAKER) (test code = 429) LYMPHOCYTES RELATIVE PERCENT 8 % (BEAKER) (test code = 430) MONOCYTES RELATIVE PERCENT 10 % (BEAKER) (test code = 431) EOSINOPHILS RELATIVE PERCENT 0 % (BEAKER) (test code = 432) BASOPHILS RELATIVE PERCENT 0 % (BEAKER) (test code = 437) NEUTROPHILS ABSOLUTE COUNT 11.34 K/ L 1.56-6.13 H (BEAKER) (test code = 670) LYMPHOCYTES ABSOLUTE COUNT 1.12 K/ L 1.18-3.74 L (BEAKER) (test code = 414) MONOCYTES ABSOLUTE COUNT (BEAKER) 1.44 K/ L 0.24-0.36 H (test code = 415) EOSINOPHILS ABSOLUTE COUNT 0.00 K/ L 0.04-0.36 L (BEAKER) (test code = 416) BASOPHILS ABSOLUTE COUNT (BEAKER) 0.02 K/ L 0.01-0.08 (test code = 417) IMMATURE GRANULOCYTES-RELATIVE 0 % 0-1 PERCENT (BEAKER) (test code = 2801) [id number] 06:35:00 Test Item Value Reference Range Interpretation Comments MAGNESIUM (BEAKER) (test code = 1.6 mg/dL 1.6-2.6 627) BASIC METABOLIC [id number] 06:35:00 Test Item Value Reference Range Interpretation Comments SODIUM (BEAKER) 138 meq/L 136-145 (test code = 381) POTASSIUM (BEAKER) 4.3 meq/L 3.5-5.1 (test code = 379) CHLORIDE (BEAKER) 106 meq/L 98-107 (test code = 382) CO2 (BEAKER) (test 24 meq/L 22-29 code = 355) BLOOD UREA NITROGEN 18 mg/dL 7-21 (BEAKER) (test code = 354) CREATININE (BEAKER) 0.73 mg/dL 0.57-1.25 (test code = 358) GLUCOSE RANDOM 129 mg/dL 70-105 H (BEAKER) (test code = 652) CALCIUM (BEAKER) 9.0 mg/dL 8.4-10.2 (test code = 697) EGFR (BEAKER) (test 80 mL/min/1.73 ESTIMA ALEJANDRA GFR IS code = 1092) sq m NOT ACCURATE CREATININE CLEARANCE IN PREDICTING GLOMERULAR FILTRATION RATE . ESTIMATED GFR I S NOT APPLICABLE FOR DIALYSIS PATIEN TS. CT, SPINE, CERVICAL, WO [id number] 20:40:00FINAL REPORT EXAM: CERVICAL SPINE CT WITHOUT CONTRAST CLINICAL INDICATION: s/p C2-6 fixation and fusion COMPARISON: None TECHNIQUE: Axially oriented 2.5 mm thick images were obtained through the entire cervical spine, without contrast. Sagittal and coronal reformations are also provided in osseous and soft tissue algorithms. DOSE REDUCTION: Dose modulation, iterative reconstruction, and/or weight-based adjustment of the mA/kV was utilized to reduce the radiation dose to as low as reasonably achievable. FINDINGS:Alignment of the cervical spine is within normal limits. Vertebral body height is maintained. Posterior decompression spanning C3-C6. Posterior hardware spans C2-C6. Drain is noted within the posterior paraspinal subcutaneous soft tissues.Mild multilevel disc space height loss. No acute findings within the paraspinal soft tissues. Ossification of the ligamentum flavumis again noted spanning C3-C7. Bilateral facet arthropathy and hypertrophy with present at C3-C4 andC4-C5 contributing to severe bilateral foraminal stenosis. At C5-C6 there is severe right/moderate le ft-sided foraminal narrowing at C5-C6. IMPRESSION: Expected postoperative appearance status post decompression Signed: Zaina Caballero Verified Date/Time: 02/15/2019 20:40:41 Reading Location:[address] Neuro Reading Room 08:40 PMFL, PROJECT MANAGEMENT SPECIALIST IN OR/30 MINUTE [id number] 17:05:00Reason for exam:- >laminectomy with fixation C2-C\T\FINAL REPORT A fluoroscopic unit was utilized for a procedure performed in the operating room. No interpretation was requested. Please refer to the operative report regarding findings. Please refer to PACS for patient radiation dose information. Signed: Lela Stephens MDReport Verified Date/Time: 02/15/2019 17:05:47 Reading Location: [address] Radiology Reading Room PET, CARDIAC PERFUSION MULTIPLE STUDIES, REST AND [id number] 16:15:00Reason for exam:->cardiac clearance for surgeryFINAL REPORT PROCEDURE: MYOCARDIAL PERFUSION PET IMAGING (Rest/Stress)CPT CODE:63623 INDICATION: Chest discomfort, dyspnea, Preoperative risk stratification prior to neurosurgicalintervention, evaluate for presence of CAD, obesity CARDIOVASCULAR PROFILE:CAD History: NoneSymptoms: Chest discomfort, dyspneaRisk Factors: ObesityBMI: 33Medications: Lovenox, Synthroid STRESS PROTOCOL:Pharmacologic stress was achieved with a 10- second intravenous infusion of regadenoson 0.4 mg. The radiopharmaceutical was administered 30 seconds after the start of the regadenoson infusion. IMAGING P ROTOCOL:Limited low-dose CT imaging was performed for attenuation correction. 39.5 mCi of Rb-82 chloride was injected intravenously at rest, and gated PET images were obtained. Then, 38.3 mCi of Rb-82 chloride was injected intravenously at peak stress, and gated PET images were obtained. REST FINDINGS: HR: 76/minBP: 140/81 mmHgPrelim. EKG: Normal sinus rhythm.Perfusion: Normal.Wall Motion: Normal (LVEF greater than 70%).LV Volume: Normal.RV Volume: Normal. STRESS FINDINGS:HR: 108/min (69% of MPHR)BP:116/53 mmHgPrelim. EKG: No ischemic changes.Symptoms: Restless legs (treatment not required).Perfusion: Normal.Wall Motion: Normal (LVEF greater than 70%).LV Volume: Not significantly changed from rest. IMPRESSION:1. Normal study.2. Normal myocardial perfusion. 3. Normal resting LVEF, which does not deteriorate with pharmacologic stress.4. Normal extracardiac tracer distribution.5. There is no prior study for comparison. Signed: Nay Alonso MDReport Verified Date/Time: 02/15/2019 16:15:04 Reading L ocation: [facility] 3rd Flr [id number] [facility] Reading Room [id number] 06:13:00 Test Item Value Reference Range Interpretation Comments MAGNESIUM (BEAKER) (test code = 1.7 mg/dL 1.6-2.6 627) BASIC METABOLIC [id number] 06:13:00 Test Item Value Reference Range Interpretation Comments SODIUM (BEAKER) 137 meq/L 136-145 (test code = 381) POTASSIUM (BEAKER) 3.4 meq/L 3.5-5.1 L (test code = 379) CHLORIDE (BEAKER) 103 meq/L 98-107 (test code = 382) CO2 (BEAKER) (test 25 meq/L 22-29 code = 355) BLOOD UREA NITROGEN 15 mg/dL 7-21 (BEAKER) (test code = 354) CREATININE (BEAKER) 0.79 mg/dL 0.57-1.25 (test code = 358) GLUCOSE RANDOM 104 mg/dL 70-105 (BEAKER) (test code = 652) CALCIUM (BEAKER) 9.3 mg/dL 8.4-10.2 (test code = 697) EGFR (BEAKER) (test 73 mL/min/1.73 ESTIMA ALEJANDRA GFR IS code = 1092) sq m NOT ACCURATE CREATININE CLEARANCE IN PREDICTING GLOMERULAR FILTRATION RATE . ESTIMATED GFR I S NOT APPLICABLE FOR DIALYSIS PATIEN TS. CBC W/PLT COUNT & AUTO [id number] 04:52:00 Test Item Value Reference Range Interpretation Comments WHITE BLOOD CELL COUNT (BEAKER) 7.1 K/ L 3.5-10.5 (test code = 775) RED BLOOD CELL COUNT (BEAKER) 5.09 M/ L 3.93-5.22 (test code = 761) HEMOGLOBIN (BEAKER) (test code = 12.8 GM/DL 11.2-15.7 410) HEMATOCRIT (BEAKER) (test code = 40.5 % 34.1-44.9 411) MEAN CORPUSCULAR VOLUME (BEAKER) 79.6 fL 79.4-94.8 (test code = 753) MEAN CORPUSCULAR HEMOGLOBIN 25.1 pg 25.6-32.2 L (BEAKER) (test code = 751) MEAN CORPUSCULAR HEMOGLOBIN CONC 31.6 GM/DL 32.2-35.5 L (BEAKER) (test code = 752) RED CELL DISTRIBUTION WIDTH 15.1 % 11.7-14.4 H (BEAKER) (test code = 412) PLATELET COUNT (BEAKER) (test 313 K/CU MM 150-450 code = 756) MEAN PLATELET VOLUME (BEAKER) 9.3 fL 9.4-12.3 L (test code = 754) NUCLEATED RED BLOOD CELLS 0 /100 WBC 0-0 (BEAKER) (test code = 413) NEUTROPHILS RELATIVE PERCENT 33 % (BEAKER) (test code = 429) LYMPHOCYTES RELATIVE PERCENT 48 % (BEAKER) (test code = 430) MONOCYTES RELATIVE PERCENT 14 % (BEAKER) (test code = 431) EOSINOPHILS RELATIVE PERCENT 4 % (BEAKER) (test code = 432) BASOPHILS RELATIVE PERCENT 1 % (BEAKER) (test code = 437) NEUTROPHILS ABSOLUTE COUNT 2.33 K/ L 1.56-6.13 (BEAKER) (test code = 670) LYMPHOCYTES ABSOLUTE COUNT 3.36 K/ L 1.18-3.74 (BEAKER) (test code = 414) MONOCYTES ABSOLUTE COUNT (BEAKER) 0.99 K/ L 0.24-0.36 H (test code = 415) EOSINOPHILS ABSOLUTE COUNT 0.29 K/ L 0.04-0.36 (BEAKER) (test code = 416) BASOPHILS ABSOLUTE COUNT (BEAKER) 0.07 K/ L 0.01-0.08 (test code = 417) IMMATURE GRANULOCYTES-RELATIVE 0 % 0-1 PERCENT (BEAKER) (test code = 2801) HEMOGLOBIN [id number] 07:47:00 Test Item Value Reference Range Interpretation Comments HEMOGLOBIN A1C (BEAKER) (test code = 6.3 % 4.3-6.1 H 368) B-TYPE NATRIURETIC FACTOR (BNP)2019-02-14 06:08:00 Test Item Value Reference Range Interpretation Comments B-TYPE NATRIURETIC PEPTIDE (BEAKER) 20 pg/mL 0-100 (test code = 700) TROPONIN [id number] 05:56:00 Test Item Value Reference Range Interpretation Comments TROPONIN I (BEAKER) (test code = 397) < ng/mL 0.00-0.03 Troponin I (TnI) levels must be interpreted in the context of the presenting symptoms and the clinical findings. Elevated TnI levels indicate myocardial damage, but are not specific for ischemic heart disease. Elevated TnI levels are seen in patients with other cardiac conditions (including myocarditis and congestive heart failure), and slight TnI elevations occur in patients with other conditions, including sepsis, renal failure, acidosis, acute neurological disease, and persistent tachyarrhythmia.[id number] 05:46:00 Test Item Value Reference Range Interpretation Comments MAGNESIUM (BEAKER) (test code = 1.7 mg/dL 1.6-2.6 627) BASIC METABOLIC [id number] 05:46:00 Test Item Value Reference Range Interpretation Comments SODIUM (BEAKER) 139 meq/L 136-145 (test code = 381) POTASSIUM (BEAKER) 3.4 meq/L 3.5-5.1 L (test code = 379) CHLORIDE (BEAKER) 102 meq/L 98-107 (test code = 382) CO2 (BEAKER) (test 27 meq/L 22-29 code = 355) BLOOD UREA NITROGEN 21 mg/dL 7-21 (BEAKER) (test code = 354) CREATININE (BEAKER) 0.84 mg/dL 0.57-1.25 (test code = 358) GLUCOSE RANDOM 105 mg/dL 70-105 (BEAKER) (test code = 652) CALCIUM (BEAKER) 9.7 mg/dL 8.4-10.2 (test code = 697) EGFR (BEAKER) (test 68 mL/min/1.73 ESTIMA ALEJANDRA GFR IS code = 1092) sq m NOT ACCURATE CREATININE CLEARANCE IN PREDICTING GLOMERULAR FILTRATION RATE . ESTIMATED GFR I S NOT APPLICABLE FOR DIALYSIS PATIEN TS. LIPID [id number] 05:46:00 Test Item Value Reference Range Interpretation Comments TRIGLYCERIDES (BEAKER) (test code = 147 mg/dL 540) CHOLESTEROL (BEAKER) (test code = 205 mg/dL 631) HDL CHOLESTEROL (BEAKER) (test code 53 mg/dL = 976) LDL CHOLESTEROL CALCULATED (BEAKER) 123 mg/dL (test code = 633) Triglyceride Reference Range: Low Risk <150 Borderline 150-199 High Risk 200-499 Very High Risk >=500Cholesterol Reference Range: Low Risk <200 Borderline 200-239 High Risk >240HDL Cholesterol Reference Range: Low Risk >=60 High Risk <40LDL Cholesterol Reference Range: Optimal <100 Near Optimal 100-129 Borderline 130-159 High 160-189 Very High >=190HEPATIC FUNCTION [id number] 05:46:00 Test Item Value Reference Range Interpretation Comments TOTAL PROTEIN (BEAKER) (test code = 7.0 gm/dL 6.0-8.3 770) ALBUMIN (BEAKER) (test code = 1145) 4.1 g/dL 3.5-5.0 BILIRUBIN TOTAL (BEAKER) (test code 0.4 mg/dL 0.2-1.2 = 377) BILIRUBIN DIRECT (BEAKER) (test 0.2 mg/dL 0.1-0.5 code = 706) ALKALINE PHOSPHATASE (BEAKER) (test 76 U/L 40-150 code = 346) AST (SGOT) (BEAKER) (test code = 16 U/L 5-34 353) ALT (SGPT) (BEAKER) (test code = 11 U/L 6-55 347) [id number] 05:35:00 Test Item Value Reference Range Interpretation Comments D-DIMER QUANTITATIVE (BEAKER) 0.33 MG/L FEU <0.50 (test code = 671) Intended Use: The D-Dimer Assay can be used to aid in the diagnosis of Deep Vein Thrombosis (DVT) and Pulmonary Embolism Disease (PED).In patients with low pre- test probability, various studies concerning STA Liatest D-dimer test have reported that with a cutoff value of 0.50 MG/L FEU, the Negative Predictive Value (NPV) regarding the exclusion of thrombosis is within 95-100% range.CBC W/PLT COUNT & AUTO [id number] 05:28:00 Test Item Value Reference Range Interpretation Comments WHITE BLOOD CELL COUNT (BEAKER) 10.2 K/ L 3.5-10.5 (test code = 775) RED BLOOD CELL COUNT (BEAKER) 4.86 M/ L 3.93-5.22 (test code = 761) HEMOGLOBIN (BEAKER) (test code = 12.1 GM/DL 11.2-15.7 410) HEMATOCRIT (BEAKER) (test code = 38.4 % 34.1-44.9 411) MEAN CORPUSCULAR VOLUME (BEAKER) 79.0 fL 79.4-94.8 L (test code = 753) MEAN CORPUSCULAR HEMOGLOBIN 24.9 pg 25.6-32.2 L (BEAKER) (test code = 751) MEAN CORPUSCULAR HEMOGLOBIN CONC 31.5 GM/DL 32.2-35.5 L (BEAKER) (test code = 752) RED CELL DISTRIBUTION WIDTH 15.4 % 11.7-14.4 H (BEAKER) (test code = 412) PLATELET COUNT (BEAKER) (test 322 K/CU MM 150-450 code = 756) MEAN PLATELET VOLUME (BEAKER) 9.8 fL 9.4-12.3 (test code = 754) NUCLEATED RED BLOOD CELLS 0 /100 WBC 0-0 (BEAKER) (test code = 413) NEUTROPHILS RELATIVE PERCENT 57 % (BEAKER) (test code = 429) LYMPHOCYTES RELATIVE PERCENT 31 % (BEAKER) (test code = 430) MONOCYTES RELATIVE PERCENT 11 % (BEAKER) (test code = 431) EOSINOPHILS RELATIVE PERCENT 1 % (BEAKER) (test code = 432) BASOPHILS RELATIVE PERCENT 0 % (BEAKER) (test code = 437) NEUTROPHILS ABSOLUTE COUNT 5.84 K/ L 1.56-6.13 (BEAKER) (test code = 670) LYMPHOCYTES ABSOLUTE COUNT 3.13 K/ L 1.18-3.74 (BEAKER) (test code = 414) MONOCYTES ABSOLUTE COUNT (BEAKER) 1.10 K/ L 0.24-0.36 H (test code = 415) EOSINOPHILS ABSOLUTE COUNT 0.06 K/ L 0.04-0.36 (BEAKER) (test code = 416) BASOPHILS ABSOLUTE COUNT (BEAKER) 0.03 K/ L 0.01-0.08 (test code = 417) IMMATURE GRANULOCYTES-RELATIVE 0 % 0-1 PERCENT (BEAKER) (test code = 2801) POCT-GLUCOSE [id number] 12:14:00 Test Item Value Reference Range Interpretation Comments POC-GLUCOSE METER 118 mg/dL 70-110 H TESTED AT [facility] [address] ([place]) (test code = [place] 1538) [address] RAD, CHEST, 1 VIEW, NON [id number] 10:45:00Reason for exam:->SOBShould this be performed at the bedside?->YesFINAL REPORT INDICATION: SOB COMPARISON: None TECHNIQUE: Single frontal view ofthe chest. FINDINGS: Lungs and pleura: Clear lungs. No effusion.Heart and mediastinum: Normal heart size. Unremarkable mediastinal contours.Osseous structures: No acute abnormality.Other: None. IMPRESSION: No acute intrathoracic abnormality. Signed: JR Douglas Robert MDReport Verified Date/Time: 02/13/2019 10:45:12 Reading Location: [facility] Radiology Reading Room [id number] 07:39:00 Test Item Value Reference Range Interpretation Comments TROPONIN I ([place]K) (test code = 397) < ng/mL 0.00-0.03 Troponin I (TnI) levels must be interpreted in the context of the presenting symptoms and the clinical findings. Elevated TnI levels indicate myocardial damage, but are not specific for ischemic heart disease. Elevated TnI levels are seen in patients with other cardiac conditions (including myocarditis and congestive heart failure), and slight TnI elevations occur in patients with other conditions, including sepsis, renal failure, acidosis, acute neurological disease, and persistent tachyarrhythmia.T4, [id number] 23:34:00 Test Item Value Reference Range Interpretation Comments FREE T4 (DEE[place]K) (test code = 655) 0.96 ng/dL 0.70-1.48 TSH/FREE T4 IF [id number] 22:33:00 Test Item Value Reference Range Interpretation Comments THYROID STIMULATING HORMONE 0.15 uIU/mL 0.35-4.94 L ([place]K) (test code = 772) [id number] 22:11:00 Test Item Value Reference Range Interpretation Comments PHOSPHORUS (BEADILENE) (test code = 2.3 mg/dL 2.3-4.7 604) [id number] 22:11:00 Test Item Value Reference Range Interpretation Comments MAGNESIUM (BEAKER) (test code = 1.7 mg/dL 1.6-2.6 627) BASIC METABOLIC [id number] 22:11:00 Test Item Value Reference Range Interpretation Comments SODIUM (BEAKER) 137 meq/L 136-145 (test code = 381) POTASSIUM (BEAKER) 3.9 meq/L 3.5-5.1 (test code = 379) CHLORIDE (BEAKER) 101 meq/L 98-107 (test code = 382) CO2 (BEAKER) (test 27 meq/L 22-29 code = 355) BLOOD UREA NITROGEN 12 mg/dL 7-21 (BEAKER) (test code = 354) CREATININE (BEAKER) 0.85 mg/dL 0.57-1.25 (test code = 358) GLUCOSE RANDOM 161 mg/dL 70-105 H (BEAKER) (test code = 652) CALCIUM (BEAKER) 9.9 mg/dL 8.4-10.2 (test code = 697) EGFR (BEAKER) (test 67 mL/min/1.73 ESTIMA ALEJANDRA GFR IS code = 1092) sq m NOT ACCURATE CREATININE CLEARANCE IN PREDICTING GLOMERULAR FILTRATION RATE . ESTIMATED GFR I S NOT APPLICABLE FOR DIALYSIS PATIEN TS. CBC W/PLT COUNT & AUTO [id number] 22:07:00 Test Item Value Reference Range Interpretation Comments WHITE BLOOD CELL COUNT (BEAKER) 6.8 K/ L 3.5-10.5 (test code = 775) RED BLOOD CELL COUNT (BEAKER) 4.90 M/ L 3.93-5.22 (test code = 761) HEMOGLOBIN (BEAKER) (test code = 12.2 GM/DL 11.2-15.7 410) HEMATOCRIT (BEAKER) (test code = 38.7 % 34.1-44.9 411) MEAN CORPUSCULAR VOLUME (BEAKER) 79.0 fL 79.4-94.8 L (test code = 753) MEAN CORPUSCULAR HEMOGLOBIN 24.9 pg 25.6-32.2 L (BEAKER) (test code = 751) MEAN CORPUSCULAR HEMOGLOBIN CONC 31.5 GM/DL 32.2-35.5 L (BEAKER) (test code = 752) RED CELL DISTRIBUTION WIDTH 15.1 % 11.7-14.4 H (BEAKER) (test code = 412) PLATELET COUNT (BEAKER) (test 320 K/CU MM 150-450 code = 756) MEAN PLATELET VOLUME (BEAKER) 9.8 fL 9.4-12.3 (test code = 754) NUCLEATED RED BLOOD CELLS 0 /100 WBC 0-0 (BEAKER) (test code = 413) NEUTROPHILS RELATIVE PERCENT 86 % (BEAKER) (test code = 429) LYMPHOCYTES RELATIVE PERCENT 12 % (BEAKER) (test code = 430) MONOCYTES RELATIVE PERCENT 1 % (BEAKER) (test code = 431) EOSINOPHILS RELATIVE PERCENT 0 % (BEAKER) (test code = 432) BASOPHILS RELATIVE PERCENT 0 % (BEAKER) (test code = 437) NEUTROPHILS ABSOLUTE COUNT 5.83 K/ L 1.56-6.13 (BEAKER) (test code = 670) LYMPHOCYTES ABSOLUTE COUNT 0.83 K/ L 1.18-3.74 L (BEAKER) (test code = 414) MONOCYTES ABSOLUTE COUNT (BEAKER) 0.08 K/ L 0.24-0.36 L (test code = 415) EOSINOPHILS ABSOLUTE COUNT 0.00 K/ L 0.04-0.36 L (BEAKER) (test code = 416) BASOPHILS ABSOLUTE COUNT (BEAKER) 0.01 K/ L 0.01-0.08 (test code = 417) IMMATURE GRANULOCYTES-RELATIVE 0 % 0-1 PERCENT (BEAKER) (test code = 2801) PROTHROMBIN [id number] 22:06:00 Test Item Value Reference Range Interpretation Comments PROTIME (BEAKER) (test code = 13.0 seconds 11.9-14.2 759) INR (BEAKER) (test code = 370) 1.0 <=5.9 Effective 10/31/2018: PT Reference Range ChangeNew: 11.9-14.2 Previous: 11.7- 14.7RECOMMENDED COUMADIN/WARFARIN INR THERAPY RANGESSTANDARD DOSE: 2.0-3.0 Includes: PROPHYLAXIS for venous thrombosis, systemic embolization; TREATMENT for venous thrombosis and/or pulmonary embolus.HIGH RISK: Target INR is 2.5-3.5 for patients wiht mechanical heart valves.[id number] 22:06:00 Test Item Value Reference Range Interpretation Comments PARTIAL THROMBOPLASTIN TIME 25.0 seconds 22.5-36.0 ([place]K) (test code = 760)
--- NOTE | 2022-02-28 17:25 | RAD REPORT ---
EXAM DESCRIPTION: RAD - Chest Single View - 02/28/2022 4:59 pm CLINICAL HISTORY: dizziness, shortness of breath COMPARISON: February 2019 TECHNIQUE: AP portable chest image was obtained 02/28/2022 4:59 pm . FINDINGS: Lung volumes are low accentuating the baseline interstitial pattern. No peripheral mass or consolidation. No failure or volume overload. Heart and vasculature are normal. No measurable pleura l effusion and no pneumothorax. No acute bony abnormality seen. No acute aortic findings suspected. IMPRESSION: No acute cardiopulmonary process.
[2022-02-28 17:35] LABS: Absolute Lymphocytes (CBC) 2.1 K/uL (0.7-4.9); Hematocrit 41.5 % (36.0-45.0); Lymphocytes % 26.4 % (15.3-44.8); MCV 84.8 fL (80-100); MPV 7.7 fL (7.6-11.3); RBC Red Blood Cell Count 4.89 M/uL (3.86-4.86)
[2022-02-28 17:37] LABS: Protime INR 0.97
--- NOTE | 2022-02-28 17:55 | RAD REPORT ---
EXAM DESCRIPTION: CT - Head Brain Wo Cont - 02/28/2022 5:38 pm CLINICAL HISTORY: weakness COMPARISON: HEAD BRAIN W O CONTRAST dated 11/23/2009 TECHNIQUE: Axial 5 mm thick images of the head were obtained without IV contrast. All CT scans are performed using dose optimization technique as appropriate and may include automated exposure control or mA/KV adjustment according to patient size. FINDINGS: No intracranial hemorrhage, mass, edema or shift of mid-line structures. No cortical edema or sulcal effacement. No evidence for an acute cortical based infarction. Patient has no measurable atrophy and no measurable chronic ischemic change in the cerebral white matter. No abnormal extra-axi al fluid collections. Ventricles are normal. Mastoid air cells and visualized portions of the paranasal sinuses are clear. No acute bony findings. IMPRESSION: Negative non-contrast CT head examination.
[2022-02-28 17:59] LABS: Magnesium 1.8 mg/dL (1.8-2.4); Potassium 4.1 mmol/L (3.5-5.1); Troponin High Sensitivity 4.3 pg/mL (<58.9)
--- NOTE | 2022-02-28 19:11 | ER ---
Nurse's Notes [facility] Name: Garima Engel Age: 66 yrs Sex: Female : 1955 Arrival Date: 02/28/2022 Time: 16:09 Bed 5 Private MD: Diagnosis: Dizziness and giddiness Presentation: 02/28 16:24 Chief complaint: Patient states: has had vertigo for past 9 days, was seen at the iw clinic and the INTERNET MANAGER sent her to ER to be evaluated for stroke, the INTERNET MANAGER found some left sided weakness, pt reports feeling mildly weak in left leg. Coronavirus screen: At this time, the client does not indicate any symptoms associated with coronavirus-19. Ebola Screen: Patient negative for fever greater than or equal to 101.5 degrees Fahrenheit, and additional compatible Ebola Virus Disease symptoms Patient denies exposure to infectious person. Patient denies travel to an Ebola-affected area in the 21 days before illness onset. No symptoms or risks identified at this time. Initial Sepsis Screen: Does the patient meet any 2 criteria? No. Patient's initial sepsis screen is negative. Does the patient have a suspected source of infection? No. Patient's initial sepsis screen is negative. Risk Assessment: Do you want to hurt yourself or someone else? Patient reports no desire to harm self or others. Onset of symptoms was February 17, 2022. 16:24 Method Of Arrival: Ambulatory iw 16:24 Acuity: SHADI 3 iw Historical: - Allergies: 16:27 Codeine; iw 16:27 Nitrofurantoin (Anaphylaxis); iw 16:27 PENICILLINS; iw - Home Meds: 16:27 metformin 500 mg Oral tab 1 tab 2 times per day [Active]; spironolactone 25 mg Oral tab iw 1 tab once daily [Active]; levothyroxine 50 mcg cap 1 cap once daily [Active]; methocarbamol 750 mg Oral tab as needed [Active]; trazodone 100 mg Oral tab 1 tab once daily [Active]; - PMHx: 16:27 Thyroid problem; iw - PSHx: 16:27 knee; neck; back X 2; iw - Immunization history:: Client reports receiving the 2nd dose of the Covid vaccine. - Social history:: Smoking status: Patient denies any tobacco usage or history of. Screenin:43 Abuse screen: Denies threats or abuse. Nutritional screening: No deficits noted. em6 Tuberculosis screening: No symptoms or risk factors identified. VAN Screening: Arm Drift: Minor drift. Visual Disturbance: No visual disturbance noted. Aphasia: No aphasia noted. Neglect: No neglect noted. 17:39 Fall Risk Total Stewart Fall Scale indicates No Risk (0-24 pts). em6 Assessment: 16:35 General: Appears in no apparent distress. Behavior is calm, cooperative, appropriate em6 for age. Pain: Denies pain. Neuro: Ramirez Agitation-Sedation Scale (RASS): 0 - Alert and Calm Level of Consciousness is awake, alert, obeys commands, Oriented to person, place, time, situation, Reports weakness in left arm and left leg Denies headache. Cardiovascular: Heart tones present Patient's skin is warm and dry. Respiratory: Airway is patent Respiratory effort is even, unlabored, Respiratory pattern is regular, symmetrical, Breath sounds are clear bilaterally. GI: No signs and/or symptoms were reported involving the gastrointestinal system. : No signs and/or symptoms were reported regarding the genitourinary system. EENT: No signs and/or symptoms were reported regarding the EENT system. Derm: No signs and/or symptoms reported regarding the dermatologic system. Musculoskeletal: Circulation, motion, and sensation intact. Range of motion: intact in all extremities. 17:35 Reassessment: Patient appears in no apparent distress at this time. No changes from em6 previously documented assessment. Patient and/or family updated on plan of care and expected duration. Pain level reassessed. Patient is alert, oriented x 3, equal unlabored respirations, skin warm/dry/pink. Neuro: Ramirez Agitation-Sedation Scale (RASS): 0 - Alert and Calm Level of Consciousness is awake, alert, obeys commands, Oriented to person, place, time, situation. Respiratory: Airway is patent Respiratory effort is even, unlabored, Respiratory pattern is regular, symmetrical. 18:30 Reassessment: No changes from previously documented assessment. Patient and/or family jd3 updated on plan of care and expected duration. Pain level reassessed. Patient is alert, oriented x 3, equal unlabored respirations, skin warm/dry/pink. 20:29 Reassessment: No changes from previously documented assessment. Patient and/or family ll3 updated on plan of care and expected duration. Pain level reassessed. Patient denies pain at this time. 21:04 Reassessment: Patient appears in no apparent distress at this time. Patient and/or jb4 family updated on plan of care and expected duration. Pain level reassessed. Patient is alert, oriented x 3, equal unlabored respirations, skin warm/dry/pink. 21:25 Reassessment: report called to Erin MCKEON for room 417. jb4 Vital Signs: 16:29 BP 110 / 78; Pulse 76; Resp 16; Pulse Ox 100% on R/A; iw 17:52 BP 111 / 75; Pulse 68; Resp 18; Pulse Ox 93% on R/A; em6 19:03 BP 124 / 77; Pulse 68; Resp 16 S; Pulse Ox 97% on R/A; jd3 20:30 BP 124 / 83; Pulse 75; Resp 16; Pulse Ox 97% on R/A; jb4 21:00 BP 124 / 72; Pulse 84; Resp 16; Pulse Ox 96% on R/A; jb4 NIH Stroke Scale Scores: 17:00 NIHSS Score: 2 cp ED Course: 16:09 Patient arrived in ED. rg4 16:26 Triage completed. iw 16:29 Arm band placed on. iw 16:31 Shiraz Ferrer DO is Attending Physician. ms3 16:32 Edy Pro PA is PHCP. cp 16:41 Troy Puri, RN is Primary Nurse. jd3 16:44 Patient has correct armband on for positive identification. Call light in reach. Side em6 rails up X2. Pulse ox on. NIBP on. Warm blanket given. 17:01 XRAY Chest (1 view) In Process Unspecified. EDMS 17:30 Inserted saline lock: 22 gauge in left wrist, using aseptic technique. Blood collected. jd3 17:40 Head Brain Wo Cont In Process Unspecified. EDMS 19:10 Red Alegre MD is Hospitalizing Provider. cp 21:26 No provider procedures requiring assistance completed. Patient admitted, IV remains in jb4 place. Administered Medications: No medications were administered Medication: 21:26 VIS not applicable for this client. jb4 Outcome: 19:10 Decision to Hospitalize by Provider. cp 21:26 Admitted to Tele accompanied by tech, via wheelchair, room 417, with chart, Report jb4 called to Erin MCKEON 21:26 Condition: stable 21:26 Instructed on the need for admit. 21:44 Patient left the ED. ll3 NIH Stroke Scale - NIH Stroke Score Date: 02/28/2022 Time: 17:00 Total Score = 2 1a. Level of Consciousness (LOC) - 0(Alert) 1b. Level of Consciousness (LOC) (Month \T\ Age) - 0(Both) 1c. LOC Commands (Open \T\ Closes Eyes/Heat Treating Operator) - 0(Both) 2. Best Gaze (Lateral Gaze Paresis) - 0(Normal) 3. Visual Field Loss - 0(No visual loss) 4. Facial Palsy - 0(Normal) 5a. Left Arm: Motor (10-second hold) - 1(Drift) 5b. Right Arm: Motor (10-second hold) - 0(No drift) 6a. Left Leg: Motor (5-second hold - always test supine) - 1(Drift) 6b. Right Leg: Motor (5-second hold - always test supine) - 0(No drift) 7. Limb Ataxia (finger/nose \T\ heel/shah - test with eyes open) - 0(Absent) 8. Sensory Loss (pinprick arms/legs/face) - 0(Normal) 9. Best Language: Aphasia (description/naming/reading) - 0(No aphasia) 10. Dysarthria (speech clarity - read or repeat words) - 0(Normal) 11. Extinction and Inattention (visual/tactile/auditory/spatial/personal) - 0(No abnormality) Initials: cp Signatures: Dispatcher [employer] EDTeresa Bowers, RN Edy Gee PA PA cp Garcia, Rubi rg4 Bradley Lazaro RN RN jb4 Troy Puri RN RN jd3 Shiraz Ferrer DO DO ms3 Gin Cardenas RN RN ll3 Cherelle Murillo RN RN em6
--- NOTE | 2022-02-28 19:11 | EDPHYS ---
Physician Documentation [facility] Name: Garima Engel Age: 66 yrs Sex: Female : 1955 Arrival Date: 02/28/2022 Time: 16:09 Bed 5 Private MD: ED Physician Shiraz Ferrer HPI: 02/28 16:45 This 66 yrs old Female presents to ER via Ambulatory with complaints of Left Sided cp Weakness x 1Week. 16:45 The patient's problem is reported as dizziness. cp 16:45 Onset: The symptoms/episode began/occurred 9 day(s) ago. Duration: The episode is cp continuous. Context: patient reports history of vertigo and home meds usually help symptoms, but dizziness has persisted. Denies falls. Seen by CONSTRUCTION MILLWRIGHT today who was concerned about left side weakness on exam. Associated signs and symptoms: Pertinent positives: dizziness, Pertinent negatives: abdominal pain, chest pain, confusion, diaphoresis, diarrhea, headache, lightheadedness, numbness, palpitations, vomiting. Severity of symptoms: in the emergency department the symptoms are unchanged despite home interventions. Patient's baseline: Neuro: alert and fully oriented, Motor: no deficits, Ambulation: walks without assistance, Speech: normal. Historical: - Allergies: 16:27 Codeine; iw 16:27 Nitrofurantoin (Anaphylaxis); iw 16:27 PENICILLINS; iw - Home Meds: 16:27 metformin 500 mg Oral tab 1 tab 2 times per day [Active]; spironolactone 25 mg Oral tab iw 1 tab once daily [Active]; levothyroxine 50 mcg cap 1 cap once daily [Active]; methocarbamol 750 mg Oral tab as needed [Active]; trazodone 100 mg Oral tab 1 tab once daily [Active]; - PMHx: 16:27 Thyroid problem; iw - PSHx: 16:27 knee; neck; back X 2; iw - Immunization history:: Client reports receiving the 2nd dose of the Covid vaccine. - Social history:: Smoking status: Patient denies any tobacco usage or history of. ROS: 16:50 Constitutional: Negative for body aches, chills, fever, poor PO intake. cp 16:50 Cardiovascular: Negative for chest pain, edema, palpitations. cp 16:50 Respiratory: Negative for cough, shortness of breath, wheezing. 16:50 Neuro: Positive for dizziness, weakness, Negative for altered mental status, headache, loss of consciousness, syncope. 16:50 Eyes: Negative for injury, pain, redness, and discharge. cp 16:50 Neck: Negative for pain with movement, pain at rest, stiffness. 16:50 Abdomen/GI: Negative for abdominal pain, nausea, vomiting, and diarrhea, constipation, black/tarry stool, rectal bleeding. 16:50 : Negative for urinary symptoms. 16:50 Skin: Negative for cellulitis, rash. 16:50 All other systems are negative. cp Exam: 16:56 ECG was reviewed by the Attending Physician. cp 17:00 Constitutional: The patient appears in no acute distress, alert, awake, cp non-diaphoretic, non-toxic, well developed, well nourished. 17:00 Head/Face: Normocephalic, atraumatic. cp 17:00 Eyes: Periorbital structures: appear normal, Pupils: equal, round, and reactive to cp light and accomodation, Extraocular movements: intact throughout, Conjunctiva: normal, Sclera: no appreciated abnormality, Lids and lashes: appear normal, bilaterally. 17:00 ENT: External ear(s): are unremarkable, Ear canal(s): are normal, clear, TM's: dullness, bilaterally, Nose: is normal, Mouth: Lips: moist, Oral mucosa: pink and intact, moist, Posterior pharynx: Airway: no evidence of obstruction, patent. 17:00 Neck: ROM/movement: is normal, is supple, without pain, no range of motions limitations, no meningismus, no nuchal rigidity. 17:00 Chest/axilla: Inspection: normal, Palpation: is normal, no crepitus, no tenderness. 17:00 Cardiovascular: Rate: normal, Rhythm: regular, Edema: is not appreciated, JVD: is not appreciated. 17:00 Respiratory: the patient does not display signs of respiratory distress, Respirations: normal, no use of accessory muscles, no retractions, labored breathing, is not present, Breath sounds: are clear throughout, no decreased breath sounds, no stridor, no wheezing. 17:00 Abdomen/GI: Inspection: abdomen appears normal, Palpation: abdomen is soft and non-tender, in all quadrants. 17:00 Neuro: Orientation: to person, place \T\ time. Mentation: is normal, Cerebellar function: Romberg testing is negative, normal finger to nose testing, heel to shah testing is normal, Motor: moves all fours, Sensation: no obvious gross deficits. 18:15 Radiologist reports: no acute findings Vital Signs: 16:29 BP 110 / 78; Pulse 76; Resp 16; Pulse Ox 100% on R/A; iw 17:52 BP 111 / 75; Pulse 68; Resp 18; Pulse Ox 93% on R/A; em6 19:03 BP 124 / 77; Pulse 68; Resp 16 S; Pulse Ox 97% on R/A; jd3 20:30 BP 124 / 83; Pulse 75; Resp 16; Pulse Ox 97% on R/A; jb4 21:00 BP 124 / 72; Pulse 84; Resp 16; Pulse Ox 96% on R/A; jb4 NIH Stroke Scale Scores: 17:00 NIHSS Score: 2 cp MDM: 19:10 Patient medically screened. 19:10 Data reviewed: vital signs, nurses notes, lab test result(s), EKG, radiologic studies, cp CT scan, plain films. 19:10 Differential diagnosis: CVA, metabolic disorder, drug effects. Test interpretation: by ED physician or midlevel provider: ECG, plain radiologic studies. Physician consultation: Keith GOMEZ regarding admission, to the telemetry unit. patient's condition. 02/28 16:39 Order name: Basic Metabolic Panel; Complete Time: 18:14 02/28 16:39 Order name: CBC with Diff; Complete Time: 18:14 02/28 16:39 Order name: Magnesium; Complete Time: 18:14 02/28 16:39 Order name: PT-INR; Complete Time: 18:14 02/28 16:39 Order name: Troponin HS; Complete Time: 18:14 02/28 19:14 Order name: SARS RAPID; Complete Time: 20:23 02/28 16:39 Order name: XRAY Chest (1 view); Complete Time: 18:14 02/28 18:14 Interpretation: Report review. 02/28 17:26 Order name: Head Brain Wo Cont; Complete Time: 18:14 EDMS 02/28 18:15 Interpretation: Report reviewed. 02/28 19:09 Order name: Head angio; Complete Time: 20:23 EDMS 02/28 20:23 Interpretation: Report reviewed. 02/28 19:14 Order name: SARS RAPID bb 02/28 16:39 Order name: EKG; Complete Time: 16:40 cp 02/28 16:39 Order name: Cardiac monitoring; Complete Time: 17:32 cp 02/28 16:39 Order name: EKG - Nurse/Tech; Complete Time: 17:32 cp 02/28 16:39 Order name: IV Saline Lock; Complete Time: 17:32 cp 02/28 16:39 Order name: Labs collected and sent; Complete Time: 17:32 cp 02/28 16:39 Order name: O2 Per Protocol; Complete Time: 17:32 02/28 16:39 Order name: O2 Sat Monitoring; Complete Time: 17:32 cp 02/28 17:17 Order name: Labs - recollect needed: recollect light blue tube; Complete Time: 17:42 bd 02/28 19:09 Order name: Neck Angio; Complete Time: 20:23 EDMS EC:56 Rate is 71 beats/min. Rhythm is regular. WI interval is normal. QRS interval is normal. cp QT interval is normal. T waves are Inverted in leads III, aVR. Interpreted by me. Reviewed by me. Administered Medications: No medications were administered Disposition: 03/01 08:22 Co-signature as Attending Physician, Shiraz ANDERSON was immediately available on-site ms3 in the Emergency Department for consultation in the care of the patient. . Disposition Summary: 02/28/22 19:10 Hospitalization Ordered Hospitalization Status: Inpatient Admission cp Provider: Red Alegre cp Location: Telemetry/MedSur (observation) cp Condition: Stable cp Problem: new cp Symptoms: have improved cp Bed/Room Type: Standard cp Room Assignment: 417(02/28/22 20:58) mw Diagnosis - Dizziness and giddiness cp Forms: - Medication Reconciliation Form cp - SBAR form cp NIH Stroke Scale - NIH Stroke Score Date: 02/28/2022 Time: 17:00 Total Score = 2 1a. Level of Consciousness (LOC) - 0(Alert) 1b. Level of Consciousness (LOC) (Month \T\ Age) - 0(Both) 1c. LOC Commands (Open \T\ Closes Eyes/Emblem Drawer In) - 0(Both) 2. Best Gaze (Lateral Gaze Paresis) - 0(Normal) 3. Visual Field Loss - 0(No visual loss) 4. Facial Palsy - 0(Normal) 5a. Left Arm: Motor (10-second hold) - 1(Drift) 5b. Right Arm: Motor (10-second hold) - 0(No drift) 6a. Left Leg: Motor (5-second hold - always test supine) - 1(Drift) 6b. Right Leg: Motor (5-second hold - always test supine) - 0(No drift) 7. Limb Ataxia (finger/nose \T\ heel/shah - test with eyes open) - 0(Absent) 8. Sensory Loss (pinprick arms/legs/face) - 0(Normal) 9. Best Language: Aphasia (description/naming/reading) - 0(No aphasia) 10. Dysarthria (speech clarity - read or repeat words) - 0(Normal) 11. Extinction and Inattention (visual/tactile/auditory/spatial/personal) - 0(No abnormality) Initials: cp Signatures: Dispatcher [employer] Hue Sanchez Martha, RN RN Teresa Bolden RN RN iw Page, Corey, PA PA cp Sims, Marcus, DO DO ms3 Corrections: (The following items were deleted from the chart) 02/28 20:58 19:10 cp yeimi
--- NOTE | 2022-02-28 19:53 | P.HP ---
Certification for Inpatient Patient admitted to: Observation With expected LOS: <2 Midnights Patient will require the following post-hospital care: None Practitioner: I am a practitioner with admitting privileges, knowledge of patient current condition, hospital course, and medical plan of care. Services: Services provided to patient in accordance with Admission requirements found in Title 42 Section 412.3 of the Code of Federal Regulations <AurelioKeith Brown - Last Filed: 02/28/22 19:48> Patient History Date of Service: 02/28/22 Reason for admission: Left-sided weakness, dizziness History of Present Illness: 66-year-old female with history of diabetes mellitus type [id number], hypothyroidism presents the emergency department for dizziness, left-sided weakness. She reports she is had dizziness since approximate the of this month, she does have a history of vertigo but this episode seemed worse to her so she presented to her primary care provider for evaluation. On exam her provider noted left-sided weakness so they referred her to the emergency department. Patient does admit to some left-sided weakness and paresthesias but cannot say when this started, she reports that she has been having some left-sided difficulties ever since her back surgery approximately 2 years ago but some of her left-sided weakness seems new to her. Unknown last known well. She is evaluated in the emergency department with CT scan of the head without contrast which was negative for acute findings her labs were unremarkable. ED provider wishes to admit under observation for CVA rule out. NIH is 4. Will admit for further evaluation and management. - Past Medical/Surgical History -: Hypothyroidism -: Diabetes mellitus type 2 -: Neck surgery -: Back surgery x2 -: Knee surgery Psychosocial/ Personal History: Patient lives at home with family and is retired - Family History Family History: Reviewed- Non-Contributory - Social History Smoking Status: Never smoker Alcohol use: No CD- Drugs: No Caffeine use: Yes Place of Residence: Home <Keith Carey - Last Filed: 02/28/22 19:48> Date of Service: 03/01/22 <Red Alegre - Last Filed: 03/01/22 18:51> Allergies Penicillins Allergy (Intermediate, Verified 02/28/22 22:09) Rash nitrofurantoin Allergy (Verified 02/28/22 22:09) Anaphylaxis codeine [Codeine] Adverse Reaction (Mild, Verified 02/28/22 22:09) Nausea/Vomiting Home Medications: Levothyroxine [Synthroid*] 50 mcg PO [id number] 05/04/16 Metformin ER [Glucophage ER*] 2,000 mg PO BID 02/28/22 Spironolactone 1 tab PO SEECOM 02/28/22 Trazodone HCl [Desyrel] 1 tab PO BEDTIME 02/28/22 methocarbamoL [Methocarbamol] 1 tab PO PRN PRN 02/28/22 Aspirin [Aspirin EC 81 MG] 81 mg PO DAILY #30 03/01/22 Atorvastatin Calcium [Lipitor*] 40 mg PO BEDTIME #60 tab 03/01/22 Folic Acid 1 mg PO DAILY #30 03/01/22 Review of Systems 10-point ROS is otherwise unremarkable Neurological: Weakness, Incoordination, Other (Dizziness), As per HPI <Keith Carey - Last Filed: 02/28/22 19:48> Physical Examination - Physical Exam General: Alert, In no apparent distress, Oriented x3 HEENT: Atraumatic, PERRLA, Mucous membr. moist/pink, EOMI, Sclerae nonicteric Neck: Supple, 2+ carotid pulse no bruit, No LAD, Without JVD or thyroid abnormality Respiratory: Clear to auscultation bilaterally, Normal air movement Cardiovascular: Regular rate/rhythm, Normal S1 S2 Gastrointestinal: Normal bowel sounds, No tenderness Musculoskeletal: No tenderness Integumentary: No rashes Neurological: Normal gait, Normal speech, Normal tone, Normal affect, Abnormal strength (Left upper extremity 4-5, left lower extremity 4 out of 5), Abnormal sensation (Decreased sensation left face, left arm, left leg) - Studies Laboratory Data (last 24 hrs) 02/28/22 17:24: PT 10.7, INR 0.97 02/28/22 17:24: WBC 8.00, Hgb 13.5, Hct 41.5, Plt Count 284 02/28/22 17:24: Sodium 139, Potassium 4.1, BUN 17, Creatinine 0.84, Glucose 107 H, Magnesium 1.8 <Keith Carey - Last Filed: 02/28/22 19:48> Assessment and Plan - Plan Assessment: Left-sided weakness/paresthesia, dizzinessrule out CVA Hypothyroidism Diabetes mellitus type [id number] Plan: Left-sided weakness/paresthesia, dizzinessrule out CVA: NIH of 4 given left upper extremity drift without hitting bed, left lower extremity drift that does hit the bed, ataxia of the left lower extremity. Attempted to perform Alon but exam was limited given patient's inability to turn head too far in either direction with previous neck surgery as well as inability to lay completely flat with previous back surgery. Alon was negative patient ports her dizziness has improved significantly since she arrived in the emergency department. Will obtain MRI, carotid Doppler, echocardiogram. Aspirin, statin, folic acid ordered, lipid panel pending as well. Neurochecks ordered. Hypothyroidism: Check thyroid panel in the morning. Diabetes mellitus type [id number]: ACHS Accu-Chek, sliding scale insulin. Blood sugar 107 in ED, reports her blood sugars are well controlled. DVT PPX: Lovenox Code status: Full Discharge Plan: Home Plan to discharge in: 24 Hours - Advance Directives Does patient have a Living Will: No Does patient have a Durable POA for Healthcare: No - Code Status/Comfort Care Code Status Assessed: Yes (Full code) Critical Care: No Time Spent Managing Pts Care (In Minutes): 70 <Keith Carey - Last Filed: 02/28/22 19:48> Physician Review: Patient Assessed, Agree with Above Assessment and Plan <Red Alegre - Last Filed: 03/01/22 18:51>
[2022-02-28 19:58] LABS: SARS-CoV-2 Antigen Rapid Res Negative (Negative)
--- NOTE | 2022-02-28 20:18 | RAD REPORT ---
EXAM DESCRIPTION: CT - Head angio - 02/28/2022 8:01 pm CLINICAL HISTORY: weakness, left-sided weakness, stroke-like symptoms, vertigo TECHNIQUE: During dynamic enhancement using nonionic IV contrast, axial 1 millimeter thick images of the head were obtained. Sagittal and axial reconstruction images were generated using MIP technique and reviewed. All CT scans are performed using dose optimization technique as appropriate and may include automated exposure control or mA/KV adjustment according to patient size. COMPARISON: CT head same date FINDINGS: No aneurysm or vascular malformation identified. Major venous sinuses are patent. No stenosis, named branch occlusion, vasculitis or other significant vascular finding identifiable. IMPRESSION: Negative CT angio head examination.
--- NOTE | 2022-02-28 20:21 | RAD REPORT ---
EXAM DESCRIPTION: CT - Neck Angio - 02/28/2022 8:01 pm CLINICAL HISTORY: weakness, vertigo, left-sided weakness TECHNIQUE: During dynamic enhancement using nonionic IV contrast, axial 2 mm thick images of the nec k were obtained. Sagittal and axial reconstruction images were generated using MIP technique and revi ewed. All CT scans are performed using dose optimization technique as appropriate and may include automated exposure control or mA/KV adjustment according to patient size. COMPARISON: CT head same date, CT angio head same date FINDINGS: No aneurysm or vascular malformation identified. No carotid or vertebral dissection. No stenosis or significant atherosclerotic change at the great vessel origins. Tortuosity the proxima l portions of these vessels noted. Vertebral artery origins show no focal stenosis or significant fin ding. No stenosis, vasculitis or other significant carotid artery finding. No focal abnormality of ei ther vertebral artery. Left vertebral artery is dominant. There is tortuosity but otherwise no signif icant vertebrobasilar finding. . Enlarged multinodular thyroid gland is present. Follow-up outpatient thyroid sonography can be perfor med for further characterisation. Degenerative and postsurgical changes are present in the spine. IMPRESSION: Negative CT angio neck examination for acute or significant finding. Enlarged multinodular thyroid gland. Follow-up outpatient thyroid sonography can be performed for fur ther characterization.
[2022-02-28] MEDS: INSULIN -REGULAR HUMAN 50 UNIT/0.5 ML ML SQ SCH (21:34)
[2022-02-28] MEDS ORDERED: NA CHLORIDE 0.9% 1,000 ML IV SCH (21:34)
[2022-02-28] MEDS ORDERED: TRAZODONE 50 MG TABLET PO PRN (21:34)
[2022-02-28] MEDS ORDERED: MECLIZINE HCL 12.5 MG TAB PO PRN (21:34)
[2022-02-28] MEDS ORDERED: ATORVASTATIN 20 MG TAB PO SCH (21:34)
[2022-02-28] MEDS ORDERED: ONDANSETRON 4 MG/2 ML VIAL IV PRN (21:34)
[2022-02-28] MEDS ORDERED: ACETAMINOPHEN 500 MG TAB PO PRN (21:34)
[2022-02-28 22:10] VITALS: BMI 30.8
[2022-03-01 06:13] LABS: Absolute Lymphocytes (CBC) 2.2 K/uL (0.7-4.9); Hematocrit 40.1 % (36.0-45.0); Lymphocytes % 32.7 % (15.3-44.8); MCV 84.4 fL (80-100); MPV 7.9 fL (7.6-11.3); RBC Red Blood Cell Count 4.76 M/uL (3.86-4.86)
--- NOTE | 2022-03-01 07:19 | RAD REPORT ---
EXAM DESCRIPTION: US - CP - 03/01/2022 5:24 am CLINICAL HISTORY: Left sided weakness COMPARISON: Neck Angio dated 02/28/2022Neck Angio dated 02/28/2022; Head C Spine Mpr Wo Con dated 02/12 TECHNIQUE: Real-time sonographic evaluation of both carotid systems was performed. Doppler interroga tion was performed with waveform tracing bilaterally. FINDINGS: Normal high resistance waveforms are noted in both external carotid arteries. The common c arotid arteries and internal carotid arteries show normal low resistance waveforms. No significant plaque formation is seen. Peak systolic and end diastolic velocity values and the ICA/ CCA ratios are in the non-hemodynamically significant range. Antegrade flow seen in both vertebral arteries. Bilateral thyroid nodules. IMPRESSION: No significant atherosclerotic changes noted. No evidence of a hemodynamically significant stenosis. Bilateral thyroid nodules. Consider nonemergent dedicated thyroid ultrasound for further evaluation.
[2022-03-01] MEDS: INSULIN -REGULAR HUMAN 50 UNIT/0.5 ML ML SQ SCH ×3 (07:30→16:17)
[2022-03-01 07:55] LABS: Albumin 3.3 g/dL (3.4-5.0); Bilirubin Total 0.4 mg/dL (0.2-1.0); Protein, Total 6.3 g/dL (6.4-8.2)
[2022-03-01 07:56] LABS: T4,Total 6.9 ug/dL (4.8-13.9)
[2022-03-01 07:57] LABS: Thyroid Stimulating Hormone 4.4 uIU/mL (0.360-3.740)
[2022-03-01] MEDS ORDERED: PNEUMOCOCCAL VACCINE 0.5 ML IMVAC ONE (08:00)
[2022-03-01] MEDS ORDERED: ASPIRIN EC 81 MG TAB PO SCH (09:00)
[2022-03-01] MEDS ORDERED: FOLIC ACID 1 MG TABLET PO SCH (09:00)
[2022-03-01] MEDS ORDERED: ENOXAPARIN 40 MG/0.4 ML SQ SCH (09:00)
--- NOTE | 2022-03-01 14:44 | ECHO ---
HEIGHT: 5 ft 3 in WEIGHT: 174 lb 0 oz DATE OF STUDY: 03/01/[address]: Keith Carey NP 2-DIMENSIONAL: YES M.MODE: YES DOPPLER: YES COLOR FLOW: YES TDS: NO PORTABLE: YES DEFINITY: NO BUBBLE STUDY: NO DIAGNOSIS: STROKE CARDIAC HISTORY: CATHERIZATION: NO SURGERY: NO PROSTHETIC VALVE: NO PACEMAKER: NO MEASUREMENTS (cm) DIASTOLIC (NORMALS) SYSTOLIC (NORMALS) IVSd 0.8 (0.6-1.2) LA Diam 3.1 (1.9-4.0) LVEF 66% LVIDd 4.3 (3.5-5.7) LVIDs 2.7 (2.0-3.5) %FS 36% LVPWd 1.1 (0.6-1.2) Ao Diam 3.0 (2.0-3.7) 2 DIMENSIONAL ASSESSMENT: RIGHT ATRIUM: NORMAL LEFT ATRIUM: NORMAL RIGHT VENTRICLE: NORMAL LEFT VENTRICLE: NORMAL TRICUSPID VALVE: MILD TRICUSPID REGURGITATION MITRAL VALVE: MILD MITRAL REGURGITATION PULMONIC VALVE: NORMAL AORTIC VALVE: NORMAL PERICARDIAL EFFUSION: NONE AORTIC ROOT: NORMAL LEFT VENTRICULAR WALL MOTION: NORMAL. DOPPLER/COLOR FLOW: MILD TRICUSPID REGURGITATION/ MITRAL REGURGITATION. COMMENTS: NORMAL LEFT VENTRICULAR EJECTION FRACTION 6-65%. NORMAL WALL MOTION. MILD MITRAL REGURGITATION. MILD TRICUSPID REGURGITATION. TECHNOLOGIST: JORGE ODELL
--- NOTE | 2022-03-01 14:48 | P.DS ---
Admission Date: 02/28/22 Discharge Date: 03/01/22 Disposition: ROUTINE DISCHARGE Discharge Condition: GOOD Reason for Admission: Left-sided weakness, dizziness Consultations: 1. 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 Garima Engel is a pleasant 66 year old female with a past medical history significant for type II diabetes mellitus and hypothyroidism who was admitted to the [facility] on 02/28/2022 for left-sided weakness/parasthesias. She was admitted to the Medicine service. Upon further evaluation, CT head revealed, "negative non-contrast CT head examination." CT head angiogram revealed, "negative non-contrast CT head examination." CT neck angiogram revealed, "negative CT angio neck examination for acute or significant finding. Enlarged multinodular thyroid gland. Follow-up outpatient thyroid sonography can be performed for further characterization." Carotid ultrasound revealed, "no significant atherosclerotic changes noted. No evidence of a hemodynamically significant stenosis. Bilateral thyroid nodules. Consider nonemergent dedicated thyroid ultrasound for further evaluation." MRI brain revealed, "no acute intracranial abnormality displayed." MRA head revealed, "no acute abnormality seen." MRA neck revealed, "no acute abnormality is displayed." Neurology was consulted and she was evaluated by Dr. Zamorano. He believes that her symptoms are secondary to chronic cervical spinal cord compression as they are long- standing and are unchanged per Ms. Engel. Dr. Zamorano has cleared her for discharge with a daily baby aspirin. She was evaluated by Physical Therapy, who recommended Home Health; however, she declined home health services. On 03/01/2022, she was seen on rounds and deemed medically stable for discharge. She was discharged with instructions to schedule follow-up appointments with her PCP (SERGIO Alvarado) in 3-5 days and with Neurology (Dr. Zamorano) in 5-7 days. She and her were given the opportunity to ask questions and reported no further questions. Furthermore, all questions were answered to the best of my ability. A copy of this discharge summary will be sent to the above providers to facilitate continuity of care. Today, I personally spent 20 minutes on her case, of which greater than 50% of the time was spent in patient education, counseling, and coordination of care as described above. NIH Stroke Scale 1a. Level of consciousness: 0 - Alert; keenly responsive 1b. LOC questions: 0 - Both questions right 1c. LOC commands: 0 - Performs both tasks 2. Best Gaze: 0 - Normal 3. Visual: 0 - No visual loss 4. Facial Palsy: 0 - Normal symmetry 5a. Motor left arm: 1 - drift, but doesn't hit bed 5b. Motor right arm: 0 - No drift for 10 seconds 6a. Motor left le - drift, but doesn't hit bed 6b. Motor right le - No drift for 5 seconds 7. Limb ataxia: 1- ataxia in 1 limb 8. Sensory: 0 - Normal; no sensory loss 9. Best Language: 0 - Normal; no aphasia 10. Dysarthria: 0 - Normal 11. Extinction and Inattention: 0 - No abnormality 12. Distal motor function: 0 - No abnormality Total Score: 3 Vital Signs/Physical Exam: Temp Pulse Resp BP Pulse Ox 97.8 F 60 14 110/77 98 03/01/22 12:00 03/01/22 12:00 03/01/22 12:00 03/01/22 12:00 03/01/22 12:00 General: Alert, In no apparent distress, Oriented x3 HEENT: Atraumatic, PERRLA, Mucous membr. moist/pink, EOMI, Sclerae nonicteric Neck: Supple, JVD not distended Respiratory: Clear to auscultation bilaterally, Normal air movement Cardiovascular: No edema, Regular rate/rhythm, Normal S1 S2, No gallops, No rubs, No murmurs Gastrointestinal: Normal bowel sounds, Soft and benign, Non-distended, No tenderness, No rebound, No guarding Musculoskeletal: No clubbing Integumentary: No rashes Neurological: Normal speech, Normal strength at 5/5 x4 extr (with exception of 4+ strength in LUE/LLE), Normal tone, Sensation intact, Cranial nerves 3-12 intact, Normal reflexes 2+, Normal affect Laboratory Data at Discharge: WBC 6.70 K/uL (4.3-10.9) 03/01/22 05:22 Hgb 13.5 g/dL (12.0-15.0) 03/01/22 05:22 Hct 40.1 % (36.0-45.0) 03/01/22 05:22 Plt Count 250 K/uL (152-406) 03/01/22 05:22 PT 10.7 SECONDS (9.5-12.5) 02/28/22 17:24 INR 0.97 02/28/22 17:24 Sodium 140 mmol/L (136-145) 03/01/22 05:22 Potassium 4.0 mmol/L (3.5-5.1) 03/01/22 05:22 BUN 14 mg/dL (7-18) 03/01/22 05:22 Creatinine 0.85 mg/dL (0.55-1.3) 03/01/22 05:22 Glucose 95 mg/dL (74-106) 03/01/22 05:22 Magnesium 1.8 mg/dL (1.8-2.4) 02/28/22 17:24 Total Bilirubin 0.4 mg/dL (0.2-1.0) 03/01/22 05:22 AST 11 U/L (15-37) L 03/01/22 05:22 ALT 18 U/L (12-78) 03/01/22 05:22 Alkaline Phosphatase 83 U/L (45-117) 03/01/22 05:22 Triglycerides 126 mg/dL (<150) 03/01/22 05:22 Cholesterol 168 mg/dL (<200) 03/01/22 05:22 HDL Cholesterol 46 mg/dL (40-60) 03/01/22 05:22 Cholesterol/HDL Ratio 3.65 03/01/22 05:22 Home Medications: Levothyroxine [Synthroid*] 50 mcg PO [id number] 05/04/16 Metformin ER [Glucophage ER*] 2,000 mg PO BID 02/28/22 Spironolactone 1 tab PO SEECOM 02/28/22 Trazodone HCl [Desyrel] 1 tab PO BEDTIME 02/28/22 methocarbamoL [Methocarbamol] 1 tab PO PRN PRN 02/28/22 Aspirin [Aspirin EC 81 MG] 81 mg PO DAILY #30 03/01/22 Atorvastatin Calcium [Lipitor*] 40 mg PO BEDTIME #60 tab 03/01/22 Folic Acid 1 mg PO DAILY #30 03/01/22 New Medications: Aspirin [Aspirin EC 81 MG] 81 mg PO DAILY #30 Folic Acid 1 mg PO DAILY #30 Atorvastatin Calcium [Lipitor*] 40 mg PO BEDTIME #60 tab Physician Discharge Instructions: 1. Please schedule a follow-up appointment with your PCP (SERGIO Alvarado) in 3-5 days 2. Please schedule a follow-up appointment with Neurology (Dr. Zamorano) in 3-5 days Diet: AHA Activity: Ad angel Followup: Manisha Alvarado NP [Primary Care Provider] - Bill Zamorano MD [ASSOCIATE-ACTIVE - CAN ADMIT] - Time spent managing pt's care (in minutes): 20
--- NOTE | 2022-03-01 16:56 | RAD REPORT ---
EXAM DESCRIPTION: MRI - Brain W/Wo Cont - 03/01/2022 4:00 pm CLINICAL HISTORY: Left-sided weakness COMPARISON: head CT February 28, 2022 TECHNIQUE: Axial, sagittal, and coronal magnetic images of the brain were obtained. 17 cc MultiHance administered intravenously FINDINGS: Mild signal within periventricular, deep and subcortical white matter probably ischemic ch anges secondary to small vessel disease The ventricles are normal in caliber. Diffusion-weighted/ ADC mapping sequences do not demonstrate evidence of an acute infarction. No abnormal enhancement within the brain is seen. An extra-axial fluid collection is not noted. Fluid within the sinuses/mastoids is not seen IMPRESSION: No acute intracranial abnormality displayed
--- NOTE | 2022-03-01 16:58 | RAD REPORT ---
EXAM DESCRIPTION: MRI - MRA Neck W/Wo Cont - 03/01/2022 4:00 pm CLINICAL HISTORY: Left-sided weakness COMPARISON: CTA February 28, 2022 TECHNIQUE: Magnetic resonance angiogram of the neck was performed. 17 cc MultiHance was administered intravenously. 3D MIPS reconstruction performed FINDINGS: The common carotid, internal carotid and external carotid arteries do not demonstrate a si gnificant stenosis. An aneurysm is not seen. Left vertebral artery is a little bit more dominant than the right. No significant stenosis. No dissection IMPRESSION: No acute abnormality is displayed NASCET criteria used. Mild 0-49% stenosis Moderate 50-69% stenosis Severe 70-99% stenosis
--- NOTE | 2022-03-01 17:00 | RAD REPORT ---
EXAM DESCRIPTION: MRI - MRA Head Wo Cont - 03/01/2022 4:00 pm CLINICAL HISTORY: Left-sided weakness COMPARISON: CT angiogram February 28, 2022 TECHNIQUE: Magnetic resonance angiogram was performed. 3D MIPS reconstruction performed FINDINGS: The anterior cerebral, middle cerebral, posterior cerebral, distal internal carotid and ba silar arteries do not demonstrate a significant stenosis. An aneurysm is not displayed. IMPRESSION: No acute abnormality seen
[2022-03-01 17:08] VITALS: BP 142/93; TEMP 97.6
--- NOTE | 2022-03-02 00:58 | CON ---
Reason For Consultation: Consultation called because of left-sided weakness with episodes of dizzine ss. History Of Present Illness: Ms. Engel is a 66-year-old right-handed patient with a long his tory of cervical canal stenosis, status post multiple decompression surgeries, last done in 2019 and she has had since for several years, left arm and leg numbness and weakness, which has not resolved f urther following her cervical decompression. An MRI from around April 2020 did show significant c ord flattening of 6-7 mm at C4-5 level and that was decompressed. She did note prior to that, she al so had a cervical canal decompression. In any event, she has independent vertigo which has been off and on and predating her cervical cord issues. She thought that perhaps for the last 2 to 3 weeks sh beatriz has had some more left-sided numbness and very mild weakness and had vertigo. She came to [facility] to rule out a stroke. Her head CT scan done yesterday identified no acute ischemic or he morrhagic findings. The brain MRI done earlier today showed no evidence of any acute ischemic or hem orrhagic change. There was a mild finding of small vessel ischemic disease. Her magnetic resonance angiogram of her [place] show no abnormalities. Echocardiogram showed ejection fraction of 66% with mild mitral and tricuspid regurgitation. Carotid artery ultrasound showed no significant st enosis in either internal carotid artery. The patient did report that she is at her baseline and mike tigo has been improved and in the past as well, it was improved with meclizine, which she takes 25 mg every 6 hours as needed. Past Medical History: As noted in addition, diabetes mellitus, hypothyroidism, and depression along with low vitamin D. Allergies: PENICILLIN, NITROFURANTOIN, AND CODEINE. Medications: Vitamin D3 1000 units daily, vitamin B12 1000 mcg daily, Lexapro 10 mg daily, levothyro xine 50 mcg daily, multivitamin daily. Past Surgical History: Multiple surgeries on the neck, low back, and knee surgery. Social History: No alcohol, tobacco, or IV drug use. Lives at home with family. is at the bedside. Review of Systems: She denies any recent fevers, chills, nausea, vomiting, although mild nausea with vertigo, which is i ntermittent, and has been helped by meclizine. Rest of her review of systems unremarkable except for the left-sided paresthesias and mild dizziness. Physical Examination: Vital Signs: Blood pressure 142/93, pulse 83, respiratory rate 14, temperature 97.8, oxygen saturati on 98%. Weight 174 pounds, height 5 feet 3 inches, BMI 30.8. General: Ms. Engel is resting in bed. She is in no significant distress. HEENT: She is normocephalic, atraumatic. Sclerae anicteric. Oropharynx is pink and moist. Neck: Supple. Chest: Clear. Heart: Regular. Extremities: She has mild edema in the left lower extremity. No edema on the right lower extremity. Otherwise, no clubbing, cyanosis. Neurological: She is alert and oriented to situation, place, and person. She has no receptive or ex pressive aphasias. Cranial nerves 2 through 12 are intact. In terms of motor examination in the upp er and lower extremities, no weakness appreciated bilaterally. She does; however, have a decreased s ensation in the left upper and lower extremities compared to the right side. Coordination intact in both extremities. Reflexes symmetric in both extremities. In terms of her gait, she was able to amb ulate independently without assistive device. She has good stride length with narrow base and with a rm swing. Laboratory Data: Blood work, complete. Blood count with differential is normal. Coagulation panel, INR 0.97. Chemistries unremarkable. Liver function studies unremarkable. TSH is 4.4 with slightly elevated free T4 0.98 and normal. Thyroxine dose regular. T4 6.9. COVID-19 testing is negative. C hest x-ray shows no acute cardiothoracic process. Assessment: Ms. Engel is a 66-year-old patient with chronic cervical cord compression that has been d ecompressed, leaving her with chronic left upper and lower extremity dysesthesia and subtle weakness. She has intermittent benign paroxysmal positional vertigo. She has comorbid conditions as stated. Plan: 1.She may be discharged home and follow up in Dr. Zamorano's clinic within a month. She may benefit from aggressive outpatient physical therapy to help with sensory perception in the lower extremity, especially on the left and to decrease her chance of falling. 2.Perform the Alon maneuver as required for vertigo. 3.She may use meclizine 25 mg every 6 hours as needed for positional vertigo. LB/MODL Voice ID: [id number] Report ID: [id number]
--- NOTE | 2022-03-02 13:10 | EKG ---
Test Date: 2022-02-28 Test Time: 16:50:52 Non Destructive Testing Supervisor: MEASUREMENT RESULTS: Intervals: Rate: 71 OH: 154 QRSD: 82 QT: 396 QTc: 430 [place]: P: 45 OH: 154 QRS: -9 T: 16 INTERPRETIVE STATEMENTS: Normal sinus rhythm Possible Anterior infarct, age undetermined Abnormal ECG Compared to ECG 02/28/2022 16:49:06 Myocardial infarct finding now present Left ventricular hypertrophy no longer present Electronically Signed On 03-02-22 13:06:21 CDT by Lalito Woody
--- NOTE | 2022-03-02 13:10 | EKG ---
Test Date: 2022-02-28 Test Time: 16:49:06 Mechanical Detailer: MEASUREMENT RESULTS: Intervals: Rate: 70 SD: 152 QRSD: 80 QT: 396 QTc: 427 [place]: P: 37 SD: 152 QRS: -17 T: 0 INTERPRETIVE STATEMENTS: Normal sinus rhythm Minimal voltage criteria for LVH, may be normal variant Borderline ECG Compared to ECG 02/12/2019 09:48:43 Myocardial infarct finding no longer present Electronically Signed On 03-02-22 13:06:23 CDT by Lalito Woody
[2022-03-03 13:32] VITALS: O2SAT 96
== END 2022-03-01 18:33 | disposition home health service (06) ==
LOC: ER 16:05 → ERHOLD 19:43 → 4TH 21:27
PROVIDERS: ADMIT Internal Medicine; ATTEND Internal Medicine
DX: R20.2 Paresthesia of skin (principal); M48.02 Spinal stenosis, cervical region; G95.20 Unspecified cord compression; E11.9 Type 2 diabetes mellitus without complications; E03.9 Hypothyroidism, unspecified; R29.704 NIHSS score 4; H81.10 Benign paroxysmal vertigo, unspecified ear; E04.2 Nontoxic multinodular goiter; E06.3 Autoimmune thyroiditis; Z88.0 Allergy status to penicillin; Z88.6 Allergy status to analgesic agent; Z20.822 Contact with and (suspected) exposure to COVID-19
CPT/HCPCS: 93005 ×2; 93306; 85025 ×2; 80048; 36415; 83735; 85610; 80061; 82947 ×2; 84436; 84443; 84484; 84439; 80053; 70450; 70496; 70498; 71045; 93880; 70553; 70544; 70549; 92610; 97161; 99285; 87811; Q9967; A9577; J1650; J7030; G0378 ×3